=== PATIENT | female | born 2000 | race Caucasian/White ===

== ENCOUNTER 2020-03-05 11:50 | Outpatient (REF) | payer BC, SELFPAY ==
[2020-03-05 12:16] LABS: COVID-19 Test Negative (Negative)
== END 2020-03-05 11:51 | disposition home or self-care (01) ==
LOC: HO.LAB 11:50
PROVIDERS: PCP Hospitalist; Visit Provider Internal Medicine
DX: Z20.828 Contact with and (suspected) exposure to other viral communicable diseases (principal)
CPT/HCPCS: 87635

== ENCOUNTER 2020-12-29 20:27 | Emergency (ER) | payer BC, MEDICAID, SELFPAY ==
--- NOTE | ~2020-12-29 | XR_ITS ---
EXAMINATION: XR ANKLE, LEFT CLINICAL INFORMATION: Rule out fracture, pain COMPARISON: None TECHNIQUE: AP, lateral, and mortise views of the left ankle. FINDINGS: No fracture or dislocation. XR/XR ankle LT 2V IMPRESSION: No fracture or dislocation left ankle.
[2020-12-29 21:06] VITALS: BP 127/79; PULSE 88; RESP 16; TEMP 36.6; O2SAT 98; BMI 26.4
--- NOTE | 2020-12-29 21:36 | ED_ITS ---
HPI - Extremity Problem General Chief complaint: Extremity Problem Stated complaint: ankle injury Source: patient Mode of arrival: ambulatory Limitations: no limitations History of Present Illness HPI Narrative: 20-year-old female with no significant past medical history presents with left ankle pain after stepping into a pothole 2 days ago. Stated that while she was at work today the pain increased to the point where she had to sit down multiple times. She is able to ambulate but ambulates with a limp. Does not report any loss of sensation, or any other injuries. Complaint: extremity pain Onset (ago): day(s) (2) Pain Consistency: constant Location: left and lower extremity Severity scale (1-10): 5 Quality: aching Radiation: none Relieving factors: elevation and rest Exacerbating factors: weight bearing, walking and palpation Associated symptoms: denies other symptoms Related Data Home Medications Medication Instructions Recorded Confirmed No Known Home Meds 10/08/20 10/08/20 Allergies Allergy/AdvReac Type Severity Reaction Status Date / Time No Known Allergies Allergy Verified 12/29/20 21:06 [No Known Allergies*] Review of Systems Review of Systems: Constitutional: No Fever, No Chills ENT/Mouth: No Ear Pain, No Hoarseness, No sore throat Eyes: No Eye Pain, No Swelling, No Redness, No Foreign Body Cardiovascular: No Chest Pain, No SOB Respiratory: No Cough, No Dyspnea Gastrointestinal: No Nausea, No Vomiting, No Diarrhea, No abdominal Pain Genitourinary: No Dysuria, No Hematuria Musculoskeletal: positive left ankle pain, No Myalgias, No Joint Swelling Skin: No Skin lacerations, No rash Neuro: No Weakness, No Numbness, No Paresthesias, No Loss of Consciousness, No Dizziness, No Headache Psych: No Anxiety/Panic, No Depression Heme/Lymph: no easy bruising, no Lymphadenopathy Endocrine: No Polyuria, No Polydipsia Yes all other systems are reviewed and are negative [facility] Past Medical History Attestation statement: The following information was validated with the patient. Source: old records reviewed Social History Social History Advance Directives: No Advance Directives Information Provided: Yes Physical Exam Vital Signs: Vital Signs: Last Vital Signs Temp 97.8 F 12/29/20 21:06 Pulse 88 12/29/20 21:06 Resp 16 12/29/20 21:06 BP 127/79 12/29/20 21:06 Pulse Ox 98 12/29/20 21:06 Body Mass Index 26.4 Appearance: Alert. Oriented X3. No acute distress. Eyes: Pupils equal, round and reactive to light. ENT: Pharynx normal. Neck: Normal inspection. Neck supple. CVS: Normal heart rate and rhythm. Pulses normal. Respiratory: No respiratory distress. Breath sounds normal. Abdomen: Soft and nontender. Skin: Skin warm and dry. Normal skin color. Normal skin turgor. Extremities: No visible swelling or bruising. No tenderness to malleolar pr ocesses, full flexion extension internal and external rotation. Brisk capillary refill and equal pedal pulses. Neuro: No motor deficit. No sensory deficit. Course Course Course Narrative: 20-year-old female presents with left ankle pain after stepping into a pothole. Does not describe any other symptoms. X-rays are negative for acute findings. Physical exam unremarkable. Will place patient in Arnel wrap, and suggest ice, elevation, rest, Tylenol Motrin. I did apply an Arnel wrap for comfort. Patient verbalized understanding of and agrees to plan of care discharge home. MDM - Extremity (Nontraumatic) MDM Narrative Medical decision making narrative: Fracture, sprain, dislocation Medical Records Attestation: I reviewed the patient's medical records. Imaging Data Ankle x-ray: Attestation: I personally reviewed and interpreted this imaging study as follows: Radiologist's impression: EXAMINATION: XR ANKLE, LEFT CLINICAL INFORMATION: Rule out fracture, pain? COMPARISON: None? TECHNIQUE: AP, lateral, and mortise views of the left ankle. FINDINGS: No fracture or dislocation.? XR/XR ankle LT 2V IMPRESSION: No fracture or dislocation left ankle. Discharge Plan Discharge Clinical Impression: Ankle sprain Qualifiers: Encounter type: initial encounter Involved ligament of ankle: unspecified ligament Laterality: left Qualified Code(s): S93.402A - Sprain of unspecified ligament of left ankle, initial encounter Patient Disposition: Home, Self-Care Instructions: Ankle Sprain (ED), R.I.C.E. Treatment (ED) Additional Instructions: You were evaluated for left ankle pain after stepping into a pothole. X-rays are negative for acute findings, fracture or dislocation. Your injuries are consistent with a sprain. Please use Arnel wrap as needed for pain management. Rest, ice and elevate to help reduce swelling and pain. Use Tylenol or Motrin to help reduce pain. Thank you for choosing this emergency department for evaluation. Please follow-up with primary care physician as needed. Return to the emergency department for any new, concerning, or worsening symptoms. Stand Alone Forms: Work/School Release Interventions: ED Discharge Assessment Last Done: 12/29/20 22:31 Discharge Date/Time: 12/29/20 22:32
== END 2020-12-29 22:32 | disposition home or self-care (01) ==
PROVIDERS: Emergency Provider Internal Medicine; PCP Hospitalist
DX: S93.402A Sprain of unspecified ligament of left ankle, initial encounter (principal); W17.2XXA Fall into hole, initial encounter; Y93.01 Activity, walking, marching and hiking; Y92.414 Local residential or business street as the place of occurrence of the external cause; Y99.9 Unspecified external cause status
CPT/HCPCS: 73600; 99283

== ENCOUNTER 2021-04-16 08:00 | Outpatient (REF) | payer BC, MEDICAID, SELFPAY ==
[2021-04-16 13:10] LABS: BV Int Neg Control Negative (Negative); BV Int Pos Control Positive (Positive)
[2021-04-16 14:04] LABS: CT PCR NOT DETECTED (Not Detect.); NG PCR NOT DETECTED (Not Detect.)
== END 2021-04-16 08:01 | disposition home or self-care (01) ==
LOC: HO.LAB 08:00
PROVIDERS: PCP Hospitalist; Visit Provider Advanced Practice Midwife
DX: Z01.419 Encounter for gynecological examination (general) (routine) without abnormal findings (principal); Z20.2 Contact with and (suspected) exposure to infections with a predominantly sexual mode of transmission
CPT/HCPCS: 87480; 87491; 87510; 87591; 87660; 88142

== ENCOUNTER 2021-05-07 22:59 | Emergency (ER) | payer BC, MEDICAID, SELFPAY ==
[2021-05-07 23:19] VITALS: BP 129/76; PULSE 95; RESP 14; TEMP 36.7; O2SAT 97; BMI 26.6
[2021-05-08 00:50] LABS: COVID-19 Test Negative (Negative)
--- NOTE | 2021-05-08 01:52 | ED_ITS ---
HPI - URI/Sore Throat General Chief Complaint: Upper Respiratory Symptoms Stated Complaint: Flu like symptoms Time Seen by Provider: 05/08/21 01:52 Source: patient Mode of arrival: ambulatory Limitations: no limitations History of Present Illness HPI Narrative: cough, vomiting and rhinorrhea started 10 days ago. patient is vaccinated against covid MD elicited complaint: fever, cough, sore throat and rhinorrhea Onset (ago): day(s) Consistency: constant Severity: mild Relieving factors: nothing Associated symptoms: fever, headache, nasal congestion, sore throat and cough Related Data Previous Rx's Medication Instructions Recorded trazodone 50 mg tablet 25 mg PO BID PRN #60 tab 04/02/21 metronidazole 500 mg tablet 500 mg PO BID 7 Days #14 tab 04/22/21 ibuprofen 600 mg tablet 600 mg PO Q8H PRN #20 tab 05/08/21 ondansetron HCl 4 mg tablet 4 mg PO Q8H PRN #10 tab 05/08/21 (Zofran) rvvqpetlidkap-CZ-qrvyomupgie 2.5 20 ml PO Q4H PRN #118 ml 05/08/21 mg-5 mg-50 mg/5 mL oral liquid (Robitussin Cough and Cold CF) Allergies Allergy/AdvReac Type Severity Reaction Status Date / Time No Known Allergies Allergy Verified 04/16/21 08:26 [No Known Allergies*] Review of Systems Constitutional: Constitutional: Reports no additional constitutional co mplaints Eyes: Eyes: Reports no additional eye complaints ENT: Denies dizziness Cardiovascular: Cardiovascular: Reports no additional cardiovascular complaints Respiratory: Respiratory: Reports as per HPI Gastrointestinal: Gastrointestinal: Reports no additional gastrointestinal complaints Genitourinary: Genitourinary: Reports no additional female genitourinary complaints Musculoskeletal: Musculoskeletal: Reports no additional musculoskeletal complaints Integumentary/Breasts: Skin/Breast: Denies rash Neurologic: Reports system reviewed and no additional complaints, except as documented, Denies dizziness and Denies Sensory deficit (Neuro) Psychiatric: Psychiatric: Denies anxiety PMFSH Past Medical History Surgical History H/O right wrist surgery Social History Social History Housing: House Patient Tobacco Use Status: Never used Tobacco e-Cigarette/Vaping Use: Never Used Advance Directives: No Advance Directives Information Provided: Yes service: No Current occupational status: employed 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, 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 Gender identity: Female Physical Exam Vital Signs: Vital Signs: Last Vital Signs Temp 98.1 F 05/07/21 23:19 Pulse 95 05/07/21 23:19 Resp 14 05/07/21 23:19 BP 129/76 05/07/21 23:19 Pulse Ox 97 05/07/21 23:19 BMI result Body Mass Index 26.6 Const: Other: coughing General: healthy appearing Nutritional Appearance: average body habitus Orientation/consciousness: oriented to person and patient oriented x3 Limitations: no limitations HENMT: Head: Yes normal to inspection Ears: external ears normal General nose exam: Normal external nose present Mouth: Normal oral and palatal mucosa present and oropharynx normal Throat: Yes posterior oropharynx normal Eyes: General: appearance normal, both eyes and all related structures Neck: Other: supple Neck: Yes normal visual inspection Chest: Chest palpation & inspection: normal inspection of the chest Resp: Auscultation: clear to auscultation bilaterally Cardio: Jugular venous distension: no JVD Rate: regular rate Rhythm: regular rhythm Heart sounds: S1 normal heart sound present and S2 normal heart sound present GI: Inspection: Yes normal to inspection Palpation (GI): Soft to palpation, nontender and No hepatosplenomegaly present Auscultation: normal bowel sounds : General: Yes no CVA tenderness Back/Spine/Pelvis: Back: no CVA tenderness Skin: General skin exam: no rashes or lesions noted Neuro: General: oriented to person and patient oriented x3 Cranial nerves: Yes CN's II-XII intact bilaterally Motor exam (neuro): 5/5 motor strength p resent throughout Sensory Exam: No Sensory deficit (Neuro) Extrem: General: Yes normal to inspection Psych: Appearance: grossly normal Course Reevaluation(s) Reevaluation #1: patient with viral uri will dc home on medications for her symptoms Time: 02:00 MDM - URI/Sore Throat Lab Data Labs: Lab Results 05/08/21 Range/Units 00:32 COVID-19 (PAT) Negative (Negative) COVID-19 Clin Com See Note Discharge Plan Discharge Clinical Impression: Upper respiratory infection Qualifiers: URI type: unspecified URI Qualified Code(s): J06.9 - Acute upper respiratory infection, unspecified Patient Disposition: Home, Self-Care Instructions: Upper Respiratory Infection (ED), Viral Syndrome (ED) Prescriptions: New ondansetron HCl [Zofran] 4 mg tablet 4 mg PO Q8H PRN (Reason: nausea and vomiting) Qty: 10 RF: 0 ibuprofen 600 mg tablet 600 mg PO Q8H PRN (Reason: fever or pain) Qty: 20 RF: 0 Robitussin Cough and Cold CF 2.5-5-50 mg/5 mL liquid 20 ml PO Q4H PRN (Reason: cough) Qty: 118 RF: 0 No Action trazodone 50 mg tablet 25 mg PO BID PRN (Reason: for insomnia) Qty: 60 RF: 4 metronidazole 500 mg tablet 500 mg PO BID 7 Days Qty: 14 RF: 0 Referrals: Pam Salcido, [facility]PER [Primary Care Provider] - 1 week
[2021-05-08] MEDS: Ibuprofen 600 MG TABLET PO (02:09)
[2021-05-08] MEDS: Ondansetron ODT 4 MG TAB.RAPDIS TRANSLINGU (02:09)
[2021-05-08] MEDS: guaiFENesin 200 MG/10 ML 10 ML LIQUID PO (02:10)
[2021-05-08 02:12] VITALS: BP 116/70; PULSE 77; RESP 16
--- NOTE | 2021-05-08 02:15 | PC.NURSE ---
Reviewed discharge instructions and medications.
== END 2021-05-08 02:20 | disposition home or self-care (01) ==
PROVIDERS: Emergency Provider Emergency Medicine; PCP Hospitalist
DX: J06.9 Acute upper respiratory infection, unspecified (principal); Z20.822 Contact with and (suspected) exposure to COVID-19
CPT/HCPCS: 36415; 87635; 99283; 99284

== ENCOUNTER 2021-12-04 08:48 | Outpatient (REF) | payer MEDICAID, SELFPAY ==
[2021-12-04 11:23] LABS: Hematocrit 41.7 % (37.0-47.0); Hemoglobin 13.8 g/dl (12.0-16.0); Mean Corpuscular HGB Conc 33.1 g/dl (31.0-35.0); Mean Corpuscular Hemoglobin 28.5 pg (27.0-33.0); Mean Corpuscular Volume 86.2 fL (80.0-98.0); Mean Platelet Volume 9.6 fL (9.4-12.3); Platelet Count 357 X10*3/uL (160-400); Red Blood Count 4.84 X10*6/uL (4.20-5.50); Red Cell Distribution Width 12.3 % (11.0-16.0); White Blood Count 7.1 X10*3/uL (4.8-10.8)
[2021-12-04 11:47] LABS: Alanine Aminotransferase 71 U/L (0-31); Albumin Level 4.4 g/dL (3.5-5.0); Alkaline Phosphatase 86 U/L (39-117); Anion Gap 11 (12-20); Aspartate Amino Transferase 40 U/L (5-31); Bilirubin Total 0.7 mg/dL (0.0-1.0); Blood Urea Nitrogen 13 mg/dL (9-16); Calcium 9.4 mg/dL (8.4-10.2); Carbon Dioxide 26 mmol/L (22-29); Chloride 103 mmol/L (96-108); Cholesterol 191 mg/dL; Estimated Glomerular Filt Rate > 60; Glucose Fasting 94 mg/dL (60-99); HDL Cholesterol 36 mg/dL; LDL Cholesterol Calculated 128 mg/dl; Potassium 4.2 mmol/L (3.3-5.1); Sodium 136 mmol/L (135-145); Total Protein 7.9 g/dL (6.5-8.0); Triglycerides 135 mg/dL
[2021-12-04 12:10] LABS: TSH reflex Free T4 0.71 uIU/mL (0.32-4.0)
== END 2021-12-04 08:49 | disposition home or self-care (01) ==
LOC: HO.WFDLDS 08:48
PROVIDERS: Visit Provider Hospitalist
DX: Z00.00 Encounter for general adult medical examination without abnormal findings (principal)
CPT/HCPCS: 36415; 80053; 80061; 84443; 85027

== ENCOUNTER 2022-04-22 10:41 | Outpatient (REF) | payer BC, MEDICAID, SELFPAY ==
[2022-04-22 14:24] LABS: CT PCR NOT DETECTED (Not Detect.); NG PCR NOT DETECTED (Not Detect.)
[2022-04-23 13:58] LABS: BV Int Neg Control Negative (Negative); BV Int Pos Control Positive (Positive)
== END 2022-04-22 10:42 | disposition home or self-care (01) ==
LOC: HO.LNP 10:41
PROVIDERS: Visit Provider Advanced Practice Midwife
DX: Z11.3 Encounter for screening for infections with a predominantly sexual mode of transmission (principal)
CPT/HCPCS: 87480; 87491; 87510; 87591; 87660

== ENCOUNTER 2022-05-06 18:05 | Emergency (ER) | payer BC, MEDICAID, SELFPAY ==
[2022-05-06 19:07] VITALS: BP 144/80; PULSE 119; RESP 16; TEMP 37.5; O2SAT 97; BMI 28.2
--- NOTE | 2022-05-06 19:07 | ED.URI ---
HPI - URI/Sore Throat General Chief Complaint: General Medical <Coco Spicer NP - Last Filed: 05/06/22 19:08> Stated Complaint: Cough, Chest pressure, congestion <Coco Spicer NP - Last Filed: 05/06/22 19:08> Time Seen by Provider: 05/06/22 20:21 <Coco Spicer NP - Last Filed: 05/06/22 19:08> Source: patient <Shana Diaz MD - Last Filed: 05/06/22 20:58> Mode of arrival: ambulatory <Shana Diaz MD - Last Filed: 05/06/22 20:58> Limitations: no limitations <Shana Diaz MD - Last Filed: 05/06/22 20:58> History of Present Illness HPI Narrative: 22-year-old female came in for evaluation of generalized body ache, generalized joints ache, fever, chills, coughing and runny nose with sneezing. 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 Symptoms started since yesterday. <Shana Diaz MD - Last Filed: 05/06/22 20:58> Related Data Home Medications: Previous Rx's Medication Instructions Recorded guaifenesin 100 mg/5 mL oral 200 mg (10 mL) PO Q4H PRN cough 05/06/22 liquid (Mucinex Fast-Max Chest #1,500 mL Congestion) oseltamivir 75 mg capsule (Tamiflu) 75 mg PO BID 5 days #10 caps 05/06/22 oseltamivir 75 mg capsule (Tamiflu) 75 mg PO BID 5 days #10 caps 05/06/22 <Coco Spicer NP - Last Filed: 05/06/22 19:08> Allergies/Adverse Reactions: Allergies Allergy/AdvReac Type Severity Reaction Status Date / Time No Known Allergies Allergy Verified 04/22/22 09:04 [No Known Allergies*] <Coco Spicer NP - Last Filed: 05/06/22 19:08> Review of Systems Review of Systems: All other systems are reviewed and are negative Constitutional: Reports as per HPI and Reports no additional constitutional complaints Eyes: Reports as per HPI and Reports no additional eye complaints Reports system reviewed and no additional complaints, except as documented Cardiovascular: Reports as per HPI and Reports no additional cardiovascular complaints Respiratory: Reports as per HPI and Reports no additional respiratory complaints Gastrointestinal: Reports as per HPI and Reports no additional gastrointestinal complaints Genitourinary: Reports no additional female genitourinary complaints Musculoskeletal: Reports no additional musculoskeletal complaints Skin/Breast: Reports system reviewed and no additional complaints, except as docu Psychiatric: Reports no additional psychiatric complaints Endocrine: Reports no additional endocrine complaints Hematologic/Lymphatic: Reports no additional hematologic/lymphatic complaints Allergic/Immunologic: Reports no additional allergic/immunologic complaints Reports system reviewed and no additional complaints, except as documented and Reports Abnormal speech present <Shana Diaz MD - Last Filed: 05/06/22 20:58> COUNT INCLUDES THE [facility] Past Medical History Surgical History: Surgical History H/O right wrist surgery <Coco Spicer NP - Last Filed: 05/06/22 19:08> Social History Social History: Social History Housing: House Patient Tobacco Use Status: Never used Tobacco e-Cigarette/Vaping Use: Never Used Advance Directives: No Advance Directives Information Provided: No service: No Current occupational status: employed 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, 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 Gender identity: Female Cognitive needs: No Hearing needs: No Vision needs: Yes (contacts) <Coco Spicer NP - Last Filed: 05/06/22 19:08> Physical Exam Vital Signs: Vital Signs: Last Vital Signs Temp 99.2 F 05/06/22 20:17 Pulse 109 H 05/06/22 20:17 Resp 18 05/06/22 20:17 BP 133/66 05/06/22 20:17 Pulse Ox 98 05/06/22 20:17 O2 Del Method 05/06/22 20:17 BMI result Body Mass Index 28.2 <Coco Spicer NP - Last Filed: 05/06/22 19:08> Vital Signs: Last Vital Signs Temp 99.2 F 05/06/22 20:17 Pulse 109 H 05/06/22 20:17 Resp 18 05/06/22 20:17 BP 133/66 05/06/22 20:17 Pulse Ox 98 05/06/22 20:17 O2 Del Method 05/06/22 20:17 BMI result Body Mass Index 28.2 Vital signs have been reviewed as appeared to be correct. Blood pressure normal. Heart rate normal. Respiration rate normal. Temperature normal. Oxygen saturation normal. <Shana Diaz MD - Last Filed: 05/06/22 20:58> Appearance: Alert. Oriented X3. No acute distress. Head: Normal external exam. Normocephalic. Atraumatic. No Cheung signs noted. No raccoon eyes noted Eyes: PERRLA. EOMI. Conjunctiva and sclera normal. Eyelids normal. ENT: TM's Normal. Pharynx normal. Uvula midline. Moist mucous membranes. No trismus noted. No drooling noted. No muffled voice noted. Neck: Normal inspection. Neck supple. FROM. No adenopathy. Thyroid Normal. No meningeal signs. No neck mass noted. CVS: Normal heart rate and rhythm. Heart sound normal. No murmurs noted. Pulses normal throughout. Respiratory: No respiratory distress. Painless inspiration. Breath sounds normal. No wheezes/rales/rhonchi noted. Chest nontender. No accessory muscle usage noted or decreased air movement noted. Abdomen: Soft and nontender. Bowel sounds normal in all 4 quadrants. No distention noted. No organomegaly noted. No visible injury noted. Back: No CVA tenderness. Full range of motion noted. Skin: Skin warm and dry. Normal skin color. Normal skin turgor. No rashes/lesions/lacerations noted. Extremities: No lower extremity edema. Extremities exhibit normal range of motion. Extremities nontender. Neuro: Oriented X 3. Cranial nerve exam: II-XII are grossly intact No motor deficit. No sensory deficit. Reflexes normal. <Shana Diaz MD - Last Filed: 05/06/22 20:58> Course Course Course Narrative: This is a rapid medical exam. Deferred additional HPI, ROS and PE to primary provider. 22-year-old female here with cough and fever as well as chest discomfort since yesterday. Vitals stable. Will send testing for flu, COVID, RSV <Coco Spicer NP - Last Filed: 05/06/22 19:08> Reevaluation(s) Reevaluation #1: Positive for influenza A symptoms started 24 hours ago start the patient on Tamiflu and coughing medication, rest at home, self quarantine until symptoms improve, where facemask and frequent handwashing. <Shana Diaz MD - Last Filed: 05/06/22 20:58> Time: 20:55 <Shana Diaz MD - Last Filed: 05/06/22 20:58> Medical Decision Making Differential Diagnosis Differential Diagnoses: The differential diagnosis associated with the presentation includes (RSV/COVID-19 infection/influenza.) <Shana Diaz MD - Last Filed: 05/06/22 20:58> Lab Data MDM Lab Attestation statement: I reviewed the patient's lab results. <Shana Diaz MD - Last Filed: 05/06/22 20:58> Labs: Lab Results 05/06/22 Range/Units 19:48 Influenza Type A (PCR) POSITIVE A (Negative) Influenza Type B (PCR) NEGATIVE (Negative) RSV RNA Qual (PCR) NEGATIVE (Negative) SARS-CoV-2 RNA (RT-PCR) NEGATIVE (Negative) <Coco Spicer NP - Last Filed: 05/06/22 19:08> Lab Results 05/06/22 Range/Units 19:48 Influenza Type A (PCR) POSITIVE A (Negative) Influenza Type B (PCR) NEGATIVE (Negative) RSV RNA Qual (PCR) NEGATIVE (Negative) SARS-CoV-2 RNA (RT-PCR) NEGATIVE (Negative) <Shana Diaz MD - Last Filed: 05/06/22 20:58> Discharge Plan Discharge Clinical Impression: Influenza A <Coco Spicer NP - Last Filed: 05/06/22 19:08> Patient Disposition: Home, Self-Care <Coco Spicer NP - Last Filed: 05/06/22 19:08> Instructions: Influenza (ED) <Coco Spicer NP - Last Filed: 05/06/22 19:08> Prescriptions: New oseltamivir [Tamiflu] 75 mg capsule 75 mg PO BID 5 Days Qty: 10 0RF guaifenesin [Mucinex Fast-Max Chest-Congest] 100 mg/5 mL liquid 200 mg PO Q4H PRN (Reason: cough) Qty: 1500 0RF oseltamivir [Tamiflu] 75 mg capsule 75 mg PO BID 5 Days Qty: 10 0RF <Coco Spicer NP - Last Filed: 05/06/22 19:08> Referrals: Pam Salcido, SERVICE DEPARTMENT MANAGER [Primary Care Provider] - <Coco Spicer NP - Last Filed: 05/06/22 19:08> Stand Alone Forms: Work/School Release <Coco Spicer NP - Last Filed: 05/06/22 19:08>
[2022-05-06 20:17] VITALS: BP 133/66; PULSE 109; RESP 18; TEMP 37.3; O2SAT 98
[2022-05-06 20:30] LABS: Influenza A PCR POSITIVE (Negative); Influenza B PCR NEGATIVE (Negative); Resp Syncy Virus RNA Qual PCR NEGATIVE (Negative); SARS COV2 PCR INHOUSE NEGATIVE (Negative)
== END 2022-05-06 21:10 | disposition home or self-care (01) ==
PROVIDERS: Nurse Practitioner Family; Emergency Provider Emergency Medicine; PCP Hospitalist
DX: J11.1 Influenza due to unidentified influenza virus with other respiratory manifestations (principal); Z20.822 Contact with and (suspected) exposure to COVID-19
CPT/HCPCS: 0241U; 99282; 99283

== ENCOUNTER 2022-05-10 22:20 | Emergency (ER) | payer BC, MEDICAID, SELFPAY ==
[2022-05-10 22:23] VITALS: BP 142/97; PULSE 80; RESP 18; TEMP 36.2; O2SAT 99; BMI 27.4
[2022-05-10 23:40] LABS: Influenza A PCR POSITIVE (Negative); Influenza B PCR NEGATIVE (Negative); Resp Syncy Virus RNA Qual PCR NEGATIVE (Negative); SARS COV2 PCR INHOUSE NEGATIVE (Negative)
--- NOTE | 2022-05-10 23:51 | ED.URI ---
HPI - URI/Sore Throat General Chief Complaint: Upper Respiratory Symptoms Stated Complaint: flu like symptoms Time Seen by Provider: 05/10/22 23:30 Source: patient Mode of arrival: ambulatory History of Present Illness HPI Narrative: 22-year-old female who presents after having been diagnosed with influenza a 4 days ago and started on Tamiflu states that she continues to have frequent cough that is worse at night as well as chest wall pain and feeling short of breath. She denies any history of diabetes, asthma, cigarette smoking or we would smoking. Related Data Previous Rx's Medication Instructions Recorded guaifenesin 100 mg/5 mL oral 200 mg (10 mL) PO Q4H PRN cough 05/06/22 liquid (Mucinex Fast-Max Chest #1,500 mL Congestion) oseltamivir 75 mg capsule (Tamiflu) 75 mg PO BID 5 days #10 caps 05/06/22 oseltamivir 75 mg capsule (Tamiflu) 75 mg PO BID 5 days #10 caps 05/06/22 Allergies Allergy/AdvReac Type Severity Reaction Status Date / Time No Known Allergies Allergy Verified 04/22/22 09:04 [No Known Allergies*] Review of Systems Review of Systems: Pertinent positives and negatives as stated in HPI 10 point review of systems otherwise negative. 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 GENERAL: Well developed, well nourished, in no acute distress. HEAD: Normocephalic/atraumatic EYES: PERRLA, EOMI EARS: Ext canals without abnormality, TMs non-bulging and non-erythematous NOSE: Nares patent bilateral OROPHARYNX: no oral lesions noted, posterior pharynx clear and non-erythematous without noted tonsillar enlargement/erythema/exudates NECK: Supple, no adenopathy LUNGS: Normal breath sounds. No adventitious sounds or accessory muscle use. SpO2<99> CARDIOVASCULAR: Regular rate and rhythm without noted murmurs ABDOMEN: Soft, non-tender, non-distended with bowel sounds. MUSCULOSKELETAL: No tenderness, deformities, or effusions noted on gross inspection. EXTREMITIES: No cyanosis, clubbing or edema. SKIN: Inspection of the skin reveals no rashes NEUROLOGIC: Alert and oriented x 4. Strength and sensation to light touch were grossly intact x 4. Course Course Course Narrative: 22-year-old female who has previously been identified as having influenza a and has almost completed her course of Tamiflu presents with complaints of persistent cough and no additional. I discussed with the patient at length and informed her that this cough will likely persist for 4 weeks, and gave counseling regarding elevation while sleeping at night as well as cool mist humidifier in the use of [id number] NyQuil. Medical Decision Making Lab Data Labs: Lab Results 05/10/22 Range/Units 22:58 Influenza Type A (PCR) POSITIVE A (Negative) Influenza Type B (PCR) NEGATIVE (Negative) RSV RNA Qual (PCR) NEGATIVE (Negative) SARS-CoV-2 RNA (RT-PCR) NEGATIVE (Negative) Discharge Plan Discharge Clinical Impression: Cough, Chest wall discomfort, Influenza A Patient Disposition: Home, Self-Care Instructions: Acute Cough (ED), Upper Respiratory Infection (ED), Influenza (ED), Chest Wall Pain (ED) Additional Instructions: 1. Recommend that you take [id number] Tylenol and ibuprofen together every 6 hours for symptom relief. I also recommend NyQuil. 2. Sleep in in elevated position with a cool mist humidifier at the bedside. Return to the ER for worsening symptoms. Prescriptions: No Action oseltamivir [Tamiflu] 75 mg capsule 75 mg PO BID 5 Days Qty: 10 0RF guaifenesin [Mucinex Fast-Max Chest-Congest] 100 mg/5 mL liquid 200 mg PO Q4H PRN (Reason: cough) Qty: 1500 0RF oseltamivir [Tamiflu] 75 mg capsule 75 mg PO BID 5 Days Qty: 10 0RF
[2022-05-11 00:01] VITALS: BP 119/74; PULSE 70; RESP 14; TEMP 36.8; O2SAT 98
[2022-05-11] MEDS: Ibuprofen 400 MG TABLET PO (00:01)
[2022-05-11] MEDS: Benzonatate 100 MG CAPSULE 200 MG PO (00:01)
[2022-05-11] MEDS: Acetaminophen 325 MG TABLET 975 MG PO (00:01)
== END 2022-05-11 00:05 | disposition home or self-care (01) ==
PROVIDERS: Emergency Provider Student in an Organized Health Care Education/Training Program; PCP Hospitalist
DX: J10.1 Influenza due to other identified influenza virus with other respiratory manifestations (principal); R05.9 Cough, unspecified; R07.89 Other chest pain; Z20.822 Contact with and (suspected) exposure to COVID-19
CPT/HCPCS: 0241U; 99283

== ENCOUNTER 2022-07-01 21:08 | Emergency (ER) | payer BC, MEDICAID, SELFPAY ==
[2022-07-01 21:14] VITALS: BP 131/71; PULSE 106; RESP 20; TEMP 36.8; O2SAT 99; BMI 27.4
[2022-07-01 21:30] LABS: Basophils Percent Auto 0.1 % (0-2); Eosinophils Percent Auto 0.1 % (0-4); Hematocrit 39.4 % (37.0-47.0); Hemoglobin 13.7 g/dl (12.0-16.0); Imm Gran Abs Auto 0.05 X10*3/uL (0.00-0.03); Imm Gran Pct Auto 0.3 % (0.0-0.4); Lymphocytes Absolute Auto 0.6 X10*3/uL (1.2-4.9); Lymphocytes Percent Auto 3.9 % (20-40); MANUAL DIFF FLAG SCAN; Mean Corpuscular HGB Conc 34.8 g/dl (31.0-35.0); Mean Corpuscular Hemoglobin 29.1 pg (27.0-33.0); Mean Corpuscular Volume 83.7 fL (80.0-98.0); Mean Platelet Volume 9.3 fL (9.4-12.3); Monocytes Absolute Auto 0.3 X10*3/uL (0.1-1.2); Neutrophils Percent Auto 93.6 % (45-73); Platelet Count 307 X10*3/uL (160-400); Red Blood Count 4.71 X10*6/uL (4.20-5.50); Red Cell Distribution Width 12.2 % (11.0-16.0); SCAN SMEAR FLAG 1
[2022-07-01 21:49] LABS: SLIDE REVIEW VERIFIED
[2022-07-01 21:50] LABS: Anion Gap 17 (12-20); Blood Urea Nitrogen 17 mg/dL (9-16); Calcium 9.5 mg/dL (8.4-10.2); Chloride 106 mmol/L (96-108); Creatinine Clr Calc Pharmacy 124.5; Estimated Glomerular Filt Rate > 60; Glucose Random 118 mg/dL (60-115); Potassium 4.3 mmol/L (3.3-5.1); Sodium 139 mmol/L (135-145)
[2022-07-01 21:59] LABS: Carbon Dioxide 20 mmol/L (22-29)
--- NOTE | 2022-07-01 23:30 | ED.ABDPAIN ---
HPI - Abdominal Pain General Chief Complaint: Abdominal Pain Stated Complaint: vomiting, diarrhea Time Seen by Provider: 07/01/22 23:28 Source: patient Mode of arrival: ambulatory Limitations: no limitations History of Present Illness HPI narrative: Patient had [employer] food last night today since morning been vomiting and diarrhea vomited about 6 times diarrhea about 8 times no other family member sick no fever no chills diffuse abdominal cramping . Related Data Previous Rx's Medication Instructions Recorded guaifenesin 100 mg/5 mL oral 200 mg (10 mL) PO Q4H PRN cough 05/06/22 liquid (Mucinex Fast-Max Chest #1,500 mL Congestion) oseltamivir 75 mg capsule (Tamiflu) 75 mg PO BID 5 days #10 caps 05/06/22 oseltamivir 75 mg capsule (Tamiflu) 75 mg PO BID 5 days #10 caps 05/06/22 loperamide 2 mg capsule (Imodium 2 mg PO Q6H PRN loose stool #10 07/02/22 A-D) caps ondansetron 4 mg disintegrating 4 mg PO Q6-8H PRN nausea and 07/02/22 tablet vomiting #10 tabs Allergies Allergy/AdvReac Type Severity Reaction Status Date / Time No Known Allergies Allergy Verified 07/01/22 21:17 [No Known Allergies*] Review of Systems Review of Systems Yes all other systems are reviewed and are negative [facility] Past Medical History Surgical History H/O right wrist surgery Social History Social History Housing: House Patient Tobacco Use Status: Never used Tobacco e-Cigarette/Vaping Use: Never Used Advance Directives: No Advance Directives Information Provided: No service: No Current occupational status: employed 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 Oriented X3. No acute distress. Eyes: No pallor or icterus ENT: Pharynx normal. Oral Mucosa moist Neck: Normal inspection. Neck supple. CVS: Normal heart rate and rhythm. Pulses normal. Respiratory: No respiratory distress. Equal air entry bilateral, no wheezing/rales/rhonchi Abdomen: Soft and nontender. Bowel sounds are present, no mass palpable, no CVA tenderness Skin: Skin warm and dry. Normal skin color. Normal skin turgor. Neuro: Oriented X 3. Medical Decision Making Medical Decision Making [facility] Narrative: Patient with benign abdomen likely food poisoning/viral etiology for gastroenteritis after Zofran sublingual patient able to drink p.o. fluids feeling much better discharge patient home Lab Data [facility] Lab Attestation statement: I reviewed the patient's lab results. 07/01/22 21:25 07/01/22 21:25 Labs: Lab Results 07/01/22 07/01/22 Range/Units 21:25 21:25 WBC 15.0 H (4.8-10.8) X10*3/uL RBC 4.71 (4.20-5.50) X10*6/uL Hgb 13.7 (12.0-16.0) g/dl Hct 39.4 (37.0-47.0) % MCV 83.7 (80.0-98.0) fL MCH 29.1 (27.0-33.0) pg MCHC 34.8 (31.0-35.0) g/dl RDW 12.2 (11.0-16.0) % Plt Count 307 (160-400) X10*3/uL MPV 9.3 L (9.4-12.3) fL Immature Gran % (Auto) 0.3 (0.0-0.4) % Neut % (Auto) 93.6 H (45-73) % Lymph % (Auto) 3.9 L (20-40) % [place] % (Auto) 2.0 (2-11) % Eos % (Auto) 0.1 (0-4) % Baso % (Auto) 0.1 (0-2) % Lymph # (Auto) 0.6 L (1.2-4.9) X10*3/uL [place] # (Auto) 0.3 (0.1-1.2) X10*3/uL Eos # (Auto) 0.0 (0.0-0.4) X10*3/uL Baso # (Auto) 0.0 (0.0-0.2) X10*3/uL Abs Immat Gran (auto) 0.05 H (0.00-0.03) X10*3/uL Absolute Neuts (auto) 14.0 H (2.0-8.3) x10*3/uL Absolute Nucleated RBC 0.000 (0.0-0.012) X10*3/uL Nucleated RBC % (auto) 0.0 (0.0-0.2) /100WBC Smear Tech's Comments VERIFIED Sodium 139 (135-145) mmol/L Potassium 4.3 (3.3-5.1) mmol/L Chloride 106 (96-108) mmol/L Carbon Dioxide 20 L (22-29) mmol/L Anion Gap 17 (12-20) BUN 17 H (9-16) mg/dL Creatinine 0.73 (0.5-1.4) mg/dL Estim Creat Clear Calc 124.5 Estimated GFR > 60 Random Glucose 118 H (60-115) mg/dL Calcium 9.5 (8.4-10.2) mg/dL Medications Administered Discontinued Medications Generic Name Dose Route Start Last Admin Trade Name Freq PRN Reason Stop Dose Admin Dicyclomine HCl 20 mg 07/01/22 23:50 07/01/22 23:57 Dicyclomine Hcl 10 Mg Capsule PO 07/01/22 23:51 20 mg ONCE ONE Administration Loperamide HCl 2 mg 07/01/22 23:50 07/01/22 23:57 Loperamide Hcl 2 Mg Capsule PO 07/01/22 23:51 2 mg ONCE ONE Administration Ondansetron HCl 4 mg 07/01/22 23:50 07/01/22 23:58 Ondansetron Odt 4 Mg Tab.Rapdis TRANSLINGU 07/01/22 23:51 4 mg ONCE ONE Administration Discharge Plan Discharge Clinical Impression: Gastroenteritis Patient Disposition: Home, Self-Care Instructions: Gastroenteritis (ED) Additional Instructions: Drink plenty of fluids Take nausea medication as prescribed Imodium for severe diarrhea Report to the ER if not better/worsening abdominal pain Follow-up with PCP Prescriptions: New ondansetron 4 mg tablet,disintegrating 4 mg PO Q6-8H PRN (Reason: nausea and vomiting) Qty: 10 0RF loperamide [Imodium A-D] 2 mg capsule 2 mg PO Q6H PRN (Reason: loose stool) Qty: 10 0RF No Action oseltamivir [Tamiflu] 75 mg capsule 75 mg PO BID 5 Days Qty: 10 0RF guaifenesin [Mucinex Fast-Max Chest-Congest] 100 mg/5 mL liquid 200 mg PO Q4H PRN (Reason: cough) Qty: 1500 0RF oseltamivir [Tamiflu] 75 mg capsule 75 mg PO BID 5 Days Qty: 10 0RF Interventions: ED Discharge Assessment Last Done: 07/02/22 00:49 Discharge Date/Time: 07/02/22 00:46
[2022-07-01] MEDS: Dicyclomine HCl 10 MG CAPSULE 20 MG PO (23:57)
[2022-07-01] MEDS: Loperamide HCl 2 MG CAPSULE PO (23:57)
[2022-07-01] MEDS: Ondansetron ODT 4 MG TAB.RAPDIS TRANSLINGU (23:58)
[2022-07-02] VITALS: BP 111/71; PULSE 86; RESP 14; TEMP 36.6; O2SAT 98
== END 2022-07-02 00:46 | disposition home or self-care (01) ==
PROVIDERS: Emergency Provider Internal Medicine; PCP Hospitalist
DX: K52.9 Noninfective gastroenteritis and colitis, unspecified (principal)
CPT/HCPCS: 36415; 80048; 85025; 99283

== ENCOUNTER 2022-08-01 09:42 | Outpatient (REF) | payer BC, MEDICAID, SELFPAY ==
[2022-08-01 10:22] LABS: Hematocrit 39.7 % (37.0-47.0); Hemoglobin 13.2 g/dl (12.0-16.0); Mean Corpuscular HGB Conc 33.2 g/dl (31.0-35.0); Mean Corpuscular Hemoglobin 28.3 pg (27.0-33.0); Mean Corpuscular Volume 85.2 fL (80.0-98.0); Platelet Count 400 X10*3/uL (160-400); Red Blood Count 4.66 X10*6/uL (4.20-5.50); Red Cell Distribution Width 11.9 % (11.0-16.0); White Blood Count 7.8 X10*3/uL (4.8-10.8)
[2022-08-01 10:59] LABS: Alanine Aminotransferase 53 U/L (0-31); Albumin Level 3.9 g/dL (3.5-5.0); Alkaline Phosphatase 88 U/L (39-117); Aspartate Amino Transferase 32 U/L (5-31); Bilirubin Direct < 0.2 mg/dL (0.0-0.5); Bilirubin Total 0.5 mg/dL (0.0-1.0); Total Protein 7.2 g/dL (6.5-8.0)
== END 2022-08-01 09:43 | disposition home or self-care (01) ==
LOC: HO.LAB 09:42
PROVIDERS: PCP Hospitalist; Visit Provider Hospitalist
DX: A08.4 Viral intestinal infection, unspecified (principal); D72.829 Elevated white blood cell count, unspecified; R74.8 Abnormal levels of other serum enzymes
CPT/HCPCS: 36415; 80076; 85027

== ENCOUNTER 2023-05-03 20:03 | Emergency (ER) | payer MEDICAID, SELFPAY ==
[2023-05-03 21:19] VITALS: BP 140/100; PULSE 86; RESP 18; TEMP 36.6; O2SAT 97; BMI 28.6
--- NOTE | 2023-05-03 23:30 | ED.SKABFB ---
HPI - Skin/Abscess/Foreign Bdy General Chief complaint: Skin/Abscess/Foreign Body Stated complaint: Rash on thigh Time Seen by Provider: 05/03/23 23:13 Source: patient Mode of arrival: ambulatory Limitations: no limitations History of Present Illness HPI narrative: 23 yo female tattoo 2 weeks ago used a cream for tattoos 2 days ago started with red pruritic rash no hx of allergies. no fevers or systemic symptoms no improvement with benadryl, scratchin area and cannot tolerate the itching MD complaint: rash Onset (ago): day(s) (2) Tetanus up to date: yes Location: LLE Severity: moderate Quality: pruritic Relieving factors: medication Exacerbating factors: none Context: other (tattoo 2 weeks ago used cream) Associated symptoms: denies other symptoms Treatments prior to arrival: OTC topical medication and Benadryl Related Data Previous Rx's Medication Instructions Recorded cephalexin 500 mg capsule 500 mg PO QID 7 days #28 caps 05/03/23 cetirizine 10 mg tablet 10 mg PO DAILY PRN allergy 05/03/23 symptoms #30 tabs famotidine 20 mg tablet (Pepcid) 20 mg PO DAILY abdominal 05/03/23 discomfort #14 tabs hydroxyzine HCl 50 mg tablet 50 mg PO TID PRN itching #30 tabs 05/03/23 prednisone 20 mg tablet 40 mg (2 x 20 mg) PO DAILY 4 days 05/03/23 #8 tabs Allergies Allergy/AdvReac Type Severity Reaction Status Date / Time No Known Allergies Allergy Verified 05/03/23 21:19 [No Known Allergies*] Review of Systems Review of Systems: Constitutional : No Fever, No Chills ENT/Mouth : No sore throat, No Rhinorrhea Eyes: No Eye Pain, No Swelling, No Redness Cardiovascular : No Chest Pain, No SOB Respiratory : No Cough, No Sputum Gastrointestinal : No Nausea, No Vomiting, No Diarrhea, No abdominal Pain Genitourinary : No Dysuria, No Hematuria Musculoskeletal : No joint pain, No Myalgias, No Joint Swelling Skin : No Skin Lesions, positive skin rash Neuro : No Weakness, No Numbness, No Headache Psych : No Anxiety, No Depression Heme/Lymph: No Bruising, No Bleeding,No Lymphadenopathy Endocrine : No Polyuria, No Polydipsia All other systems reviewed and are negative PMFSH Past Medical History Attestation statement: The following information was validated with the patient. 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 Oriented X3. No acute distress. Eyes: Pupils equal, round and reactive to light. ENT: Pharynx normal. Neck: Normal inspection. Neck supple. CVS: Pulses normal. Respiratory: No respiratory distress. Abdomen: Soft and non-tender. Skin: Skin warm and dry. Normal skin color. Normal skin turgor. raised excoriated non fluctuant hot rash to left upper thigh Extremities: No lower extremity edema. Neuro: Oriented X 3. No motor deficit. No sensory deficit. Medical Decision Making Medical Decision Making MDM Narrative: 23 yo female here with pruritic red hot rash on L thigh after new tattoo and using tattoo cream no systemic symptoms - not toxic at this time could be allergy with early cellulitis will start on supportive med and keflex and send home with precautions Differential Diagnosis Differential Diagnoses: The differential diagnosis associated with the presentation includes allergy, cellulitis Independent Historian Clinical information obtained from an independent historian. History obtained from or confirmed by: Spouse External Record Review External record reviewed: Office record Prescription Management I considered prescription management with: Antibiotic and Other Discharge Plan Discharge Clinical Impression: Allergic reaction Qualifiers: Encounter type: initial encounter Qualified Code(s): T78.40XA - Allergy, unspecified, initial encounter Patient Disposition: Home, Self-Care Instructions: General Allergic Reaction (ED) Additional Instructions: suspect allergic reaction to topical tattoo cream you used will start on different medication do not use that again. also possible start of infection given the scratching. return for worsening symptoms - fevers, redness, swelling or any other concerns. Prescriptions: New prednisone 20 mg tablet 40 mg PO DAILY 4 Days Qty: 8 0RF famotidine [Pepcid] 20 mg tablet 20 mg PO DAILY Qty: 14 0RF cephalexin 500 mg capsule 500 mg PO QID 7 Days Qty: 28 0RF cetirizine 10 mg tablet 10 mg PO DAILY PRN (Reason: allergy symptoms) Qty: 30 0RF hydroxyzine HCl 50 mg tablet 50 mg PO TID PRN (Reason: itching) Qty: 30 0RF Stand Alone Forms: Work/School Release
[2023-05-04] MEDS: predniSONE 20 MG TABLET 40 MG PO (00:11)
[2023-05-04] MEDS: hydrOXYzine HCL 50 MG TABLET PO (00:11)
[2023-05-04] MEDS: Famotidine 20 MG TABLET PO (00:11)
== END 2023-05-04 00:16 | disposition home or self-care (01) ==
PROVIDERS: Emergency Provider Emergency Medicine
DX: R21 Rash and other nonspecific skin eruption (principal); T78.40XA Allergy, unspecified, initial encounter; X58.XXXA Exposure to other specified factors, initial encounter
CPT/HCPCS: 99282; 99283

== ENCOUNTER 2023-05-24 20:29 | Emergency (ER) | payer BC, MEDICAID, SELFPAY ==
[2023-05-24 20:48] VITALS: BP 137/92; PULSE 90; RESP 19; TEMP 36.4; O2SAT 98; BMI 29.4
--- NOTE | 2023-05-24 20:51 | ED.GENADULT ---
HPI - General Adult General Chief complaint: Allergic Reaction Stated complaint: allergic reaction to a tattoo Time Seen by Provider: 05/24/23 20:54 Source: patient Mode of arrival: ambulatory Limitations: no limitations History of Present Illness HPI narrative: 23-year-old female previously healthy here with complaints of itching rash to the left thigh which developed after she was using a topical cream on her new tattoo. Patient reports she has had similar allergic reaction to this cream in the past. Related Data Previous Rx's Medication Instructions Recorded cephalexin 500 mg capsule 500 mg PO QID 7 days #28 caps 05/03/23 cetirizine 10 mg tablet 10 mg PO DAILY PRN allergy 05/03/23 symptoms #30 tabs famotidine 20 mg tablet (Pepcid) 20 mg PO DAILY abdominal 05/03/23 discomfort #14 tabs hydroxyzine HCl 50 mg tablet 50 mg PO TID PRN itching #30 tabs 05/03/23 prednisone 20 mg tablet 40 mg (2 x 20 mg) PO DAILY 4 days 05/03/23 #8 tabs cephalexin 500 mg capsule 500 mg PO QID #28 caps 05/24/23 cetirizine 10 mg tablet 10 mg PO DAILY PRN allergy 05/24/23 symptoms #30 tabs famotidine 20 mg tablet 20 mg PO DAILY #14 tabs 05/24/23 hydroxyzine HCl 50 mg tablet 50 mg PO TID PRN itching #30 tabs 05/24/23 prednisone 20 mg tablet 40 mg (2 x 20 mg) PO DAILY 5 days 05/24/23 #10 tabs Allergies Allergy/AdvReac Type Severity Reaction Status Date / Time No Known Allergies Allergy Verified 05/03/23 21:19 [No Known Allergies*] Review of Systems Review of Systems: Yes all other systems are reviewed and are negative Constitutional: Constitutional: Reports no additional constitutional complaints, Denies body ache(s), Denies chills, Denies fever(s), Denies headache(s) and Denies weakness Eyes: Eyes: Reports no additional eye complaints and Denies change in vision ENT: Reports system reviewed and no additional complaints, except as documented, Denies dizziness, Denies headache(s), Denies nasal congestion, Denies nasal discharge and Denies neck pain Cardiovascular: Cardiovascular: Reports no additional cardiovascular complaints, Denies chest pain, Denies leg edema and Denies dyspnea Respiratory: Respiratory: Reports no additional respiratory complaints, Denies cough and Denies dyspnea Gastrointestinal: Gastrointestinal: Reports no additional gastrointestinal complaints, Denies abdominal pain, Denies diarrhea, Denies nausea and Denies vomiting Genitourinary: Genitourinary: Reports no additional female genitourinary complaints and Denies urinary incontinence Musculoskeletal: Musculoskeletal: Reports no additional musculoskeletal complaints, Denies back pain, Denies arthralgias, Denies joint swelling, Denies neck pain, Denies numbness and Denies tingling Integumentary/Breasts: Skin/Breast: Reports system reviewed and no additional complaints, except as docu and Reports rash Neurologic: Reports system reviewed and no additional complaints, except as documented, Denies Abnormal speech present, Denies dizziness, Denies headache(s), Denies numbness, Denies tingling and Denies weakness PMFSH Past Medical History Attestation statement: The following information was validated with the patient. Source: old records reviewed and nursing notes reviewed Onset Date is defined in the Problem List Problems that require an onset date and time if occurred within 24 hrs of arrival to the ED Aortic Dissection and Rupture; Neurologic impairment; Cardiopulmonary Arrest; Endotracheal Intubation; Insertion or Replacement of Mechanical Circulatory Assist Device Medical History Elevated liver enzymes Anxiety and depression Surgical History H/O right wrist surgery Social History Social History Housing: House Patient Tobacco Use Status: Never used Tobacco e-Cigarette/Vaping Use: Never Used service: No Current occupational status: employed 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, 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 Gender identity: Female Cognitive needs: No Hearing needs: No Vision needs: Yes (contacts) Physical Exam ED Vital Signs: Vital Signs - 24 hr 05/24/23 20:48 Temperature 97.5 F Pulse Rate 90 Respiratory Rate 19 Blood Pressure 137/92 H Pulse Oximetry 98 Oxygen Delivery Method Room Air BMI result Body Mass Index 29.4 Const General: cooperative, healthy appearing, comfortable and no acute distress Orientation/consciousness: patient oriented x3 Limitations: no limitations HENMT Head: Yes normal to inspection Ears: hearing grossly normal bilaterally General nose exam: Normal external nose present Face and sinus: Yes normal facial exam Mouth: Normal oral and palatal mucosa present Throat: Yes posterior oropharynx normal Eyes General: appearance normal, both eyes and all related structures Pupils: Equal, round and reactive pupils present Neck Neck: Yes normal visual inspection Chest Chest palpation & inspection: normal inspection of the chest Resp Effort & Inspection: normal respiratory effort Auscultation: clear to auscultation bilaterally Cardio Rate: regular rate Rhythm: regular rhythm Peripheral pulses: Peripheral pulses 2+ throughout GI Inspection: Yes normal to inspection Palpation (GI): Soft to palpation and nontender Auscultation: normal bowel sounds Back/Spine/Pelvis Thoracic/Lumbar Spine: thoracic and lumbar spine normal to inspection Skin General skin exam: no rashes or lesions noted Neuro General: patient oriented x3, no focal motor deficits and normal sensation to monofilament Cranial nerves: Yes Equal, round and reactive pupils present Cognition (Neuro): normal cognition Speech: No Abnormal speech present Gait exam (Neuro): Normal gait present Motor exam (neuro): 5/5 motor strength present throughout Extrem Other: To the left thigh surrounding the test to there is a raised urticarial area that is warm to touch. The area is blanchable. It is non sloughing. Medical Decision Making Medical Decision Making MDM Narrative: 23-year-old female previously healthy here with complaints of itching rash to the left thigh which developed after she was using a topical cream on her new tattoo. Patient reports she has had similar allergic reaction to this cream in the past. to the left thigh surrounding the test to there is a raised urticarial area that is warm to touch. The area is blanchable. It is non sloughing. I suspect a local allergic reaction secondary to recent use of a topical cream. Also consider a local cellulitis and so I will initiate the patient on oral prednisone, famotidine, certizine, cephalexin with hydroxyzine for itching as needed. Reviewed worrisome signs and symptoms of when to return to the emergency room. Comfortable plan for discharge home. Differential Diagnosis Differential Diagnoses: The differential diagnosis associated with the presentation includes Allergic reaction, cellulitis low concern for SJS, ten Admission/Observation Consideration of admission/observation: Escalation of care including admission/observation considered Independent Historian Clinical information obtained from an independent historian. History obtained from or confirmed by: Spouse Prescription Management I considered prescription management with: Antibiotic Discharge Plan Discharge Clinical Impression: Allergic reaction Patient Disposition: Home, Self-Care Instructions: General Allergic Reaction (ED) Additional Instructions: suspect allergic reaction to topical tattoo cream you used will start on different medication do not use that again. also possible start of infection given the scratching. return for worsening symptoms - fevers, redness, swelling or any other concerns. Prescriptions: New prednisone 20 mg tablet 40 mg PO DAILY 5 Days Qty: 10 0RF famotidine 20 mg tablet 20 mg PO DAILY Qty: 14 0RF cephalexin 500 mg capsule 500 mg PO QID Qty: 28 0RF cetirizine 10 mg tablet 10 mg PO DAILY PRN (Reason: allergy symptoms) Qty: 30 0RF hydroxyzine HCl 50 mg tablet 50 mg PO TID PRN (Reason: itching) Qty: 30 0RF No Action prednisone 20 mg tablet 40 mg PO DAILY 4 Days Qty: 8 0RF famotidine [Pepcid] 20 mg tablet 20 mg PO DAILY Qty: 14 0RF cephalexin 500 mg capsule 500 mg PO QID 7 Days Qty: 28 0RF cetirizine 10 mg tablet 10 mg PO DAILY PRN (Reason: allergy symptoms) Qty: 30 0RF hydroxyzine HCl 50 mg tablet 50 mg PO TID PRN (Reason: itching) Qty: 30 0RF Referrals: ED Physician,Generic [Physician] - 1 week
== END 2023-05-24 21:03 | disposition home or self-care (01) ==
LOC: HO.ED 20:58
PROVIDERS: Emergency Provider Emergency Medicine
DX: T78.49XA Other allergy, initial encounter (principal); L50.9 Urticaria, unspecified; X58.XXXA Exposure to other specified factors, initial encounter
CPT/HCPCS: 99282; 99283

== ENCOUNTER 2023-06-15 16:31 | Outpatient (AMB) | payer BC, MEDICAID, SELFPAY ==
[2023-06-15 16:36] VITALS: BP 116/82; PULSE 74; RESP 13; TEMP 36.4; O2SAT 98; BMI 29.3
--- NOTE | 2023-06-15 16:36 | A.OFFPC_ITS ---
Vital Signs 06/15/23 16:36 Height 5 ft 5 in Weight 176 lb 2 oz BMI 29.3 BP 116/82 Blood Pressure Location Rt brachial Position Sitting Respiration 13 Pulse 74 Pulse Source Pulse Oximeter Temp 97.5 F Temp Source Temporal Artery Scan Pulse Oximetry (%) 98 Oxygen Delivery Method Room Air Intake Visit Reasons: transfer from [facility] follow up allergy Manager Assembly Required: No Accompanied by: Self / Same As Patient Allergies No Known Allergies [No Known Allergies*] Allergy (Verified 06/15/23 16:54) Tobacco use date assessed: 06/15/23 Dental Screening Dental Screen Date: 06/15/23 Did you have a dental visit in the last 12 months?: Yes Did you have a dental problem in the last 6 months where you did not have access to dental care?: No Was dental information given to patient?: Patient has dentist HPI HPI Comments History of Present Illness Details 23-year-old female presents for transfer of care Her former PCP is [facility] who has no longer with the practice. Last physical exam was on 11/2021. Last blood work was almost a year ago She has history of transaminitis, anxiety, and depression She reports controlled anxiety and depression symptoms. She notes that her symptoms are intermittent and improved with psychotherapy. She stopped taking psychotropic medications because they were not effective. She stopped seeing a therapist since October 2022 because she did not have a health plan. Now that she has a new job with a new health plan, she plans on connecting with a therapist again She offers no complaints and denies acute symptoms at this time Last pap smear was in 2020: normal. 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 1. Little interest or pleasure in doing things: not at all 2. Feeling down, depressed, or hopeless: not at all 3. Trouble falling or staying asleep, or sleeping too much: several days 4. Feeling tired or having little energy: several days 5. Poor appetite or overeating: more than half the days 6. Feeling bad about yourself - or that you are a failure or have let yourself or your family down: several days 7. Trouble concentrating on things, such as reading the newspaper or watching television: not at all 8. Moving or speaking so slowly that other people could have noticed. Or the opposite - being so fidgety or restless that you have been moving around a lot more than usual: several days 9. Thoughts that you would be better off or of hurting yourself in some way: not at all Total score: 6 Depression Screening Interpretation: Positive Depression Screening Follow-up: Existing condition Depression Screening Done: Yes 20851 - PHQ-9 Billing: Yes Source: Developed by Drs. Bharathi Morrison, Christi Franklin, Christo Ballesteros and colleagues, with an educational mauri from [employer]. Thrive Questionnaire Date Thrive assessed: 06/15/23 I am a: Patient What is your living situation today?: I have a steady place to live Within the past 12 months, did the food you bought not last and you didn't have the money to get more?: Sometimes True Within the past 12 months, did you worry whether your food would run out before you got money to buy more?: Sometimes True Do you have trouble paying for medicines?: No Do you have trouble getting transportation to medical appointments?: No Do you have trouble paying your heating and electricity bill?: No Do you have trouble taking care of your child, family member or friend?: No Do you have trouble with day-to-day activities such as bathing, preparing meals, shopping, managing finances, etc.?: No Are you currently unemployed and looking for a job?: No Are you interested in more education?: No Please select the resources that you would like help with: None Currently or been in a relationship where the following occur: no concerns reported THRIVE Score: 2 AUDIT C Alcohol Use Questionnaire (AUDIT-C) 1. How often do you have a drink containing alcohol?: Monthly or less 2. How many drinks containing alcohol do you have on a typical day when you are drinking?: 1 or 2 3. How often do you have six or more drinks on one occasion?: Never Total Score: 1 DENISHA-7 AMB Questionnaire DENISHA-7 Date DENISHA - 7 assessed: 06/15/23 Feeling nervous, anxious, or on edge: 2 = More than half the days Not being able to stop or control worryin = Several days Worrying too much about different things: 1 = Several days Trouble relaxin = More than half the days Being so restless that it is hard to sit still: 2 = More than half the days Becoming easily annoyed or irritable: 3 = Nearly every day Feeling afraid as if something awful might happen: 1 = Several days Total DENISHA-7 score (0-4 normal; 5-9 mild; 10-14 moderate; 15-21 severe): 12 Source: Developed by Drs. Bharathi Morrison, Christi Franklin, Christo Ballesteros and colleagues, with an educational mauri from [employer]. DENISHA-7 Assessment Billing DENISHA-7 Assessment Tool: DENISHA-7 Assessment 46706 Physical exam (Primary Care) Vital Signs: Last Vital Signs Temp 97.5 F 06/15/23 16:36 Pulse 74 06/15/23 16:36 Resp 13 06/15/23 16:36 BP 116/82 06/15/23 16:36 Pulse Ox 98 06/15/23 16:36 Oxygen Delivery Method Room Air 06/15/23 16:36 BMI result Body Mass Index 29.3 Tobacco/Smoking Status: Tobacco use Status Tobacco use date assessed 07/06/22 05/03/23 20:04 Patient Tobacco Use Status Never used Tobacco 05/03/23 20:04 e-Cigarette/Vaping Use Never Used 05/03/23 20:04 Depression Screening Interpretation: Positive Depression Screening Follow-up: Existing condition Thrive Assessment: Date of Thrive Assessment Date Thrive assessed 07/06/22 05/03/23 20:04 Currently or been in a relationship where the following occur: no concerns reported Assessment and Plan Assessment & Plan (1) Normal physical exam: Code(s): Z00.00 - Encounter for general adult medical examination without abnormal findings Plan: No significant physical restrictions or limitations noted Healthy diet and routine exercise encouraged Advised to get blood work and urinalysis done and schedule a telehealth visit in 3 weeks for labs review. Fast for 10-12 hours, may drink water only, before getting blood work done Follow-up with symptoms or concerns Verbalized understanding and agreed with treatment plan (2) Anxiety and depression: Code(s): F41.9 - Anxiety disorder, unspecified; F32.9 - Major depressive disorder, single episode, unspecified Plan: PHQ-9 and DENISHA-7 scores revealed mild depression and moderate anxiety respectively Reports controlled symptoms Declines medication management Routine exercise encouraged Message sent to the community navigator to assist the patient to reestablish with a therapist Follow-up with worsening or new symptoms Verbalized understanding and agreed with treatment plan Orders: Orders Comprehensive [place]. Panel Fast Today Z00.00 - Encounter for general adult medical examination without abnormal findings Lipid Panel Today Z00.00 - Encounter for general adult medical examination without abnormal findings TSH reflex Free T4 Today Z00.00 - Encounter for general adult medical examination without abnormal findings Complete Blood Count Auto Diff Today Z00.00 - Encounter for general adult medical examination without abnormal findings UA CC w/rflx Micro + Cult Today Z00.00 - Encounter for general adult medical examination without abnormal findings Coding Level of Care Code Est Pt Prev Care 18-39y(90860) Diagnoses Normal physical exam Z00.00 Anxiety and depression F41.9; F32.9 Additional Codes DENISHA-7 Assessment Billing - DENISHA-7 Assessment Tool: DENISHA-7 Assessment [id number] ([id number])
== END 2023-06-15 17:29 | disposition home or self-care (01) ==
PROVIDERS: Visit Provider Nurse Practitioner Family
DX: Z00.00 Encounter for general adult medical examination without abnormal findings (principal); F41.9 Anxiety disorder, unspecified; F32.9 Major depressive disorder, single episode, unspecified
CPT/HCPCS: 96127; 99395

== ENCOUNTER 2023-06-17 09:00 | Outpatient (REF) | payer BC, MEDICAID, SELFPAY ==
[2023-06-17 09:37] LABS: MANUAL DIFF FLAG NO
[2023-06-17 10:54] LABS: Basophils Percent Auto 0.4 % (0-2); Eosinophils Absolute Auto 0.1 X10*3/uL (0.0-0.4); Eosinophils Percent Auto 1.3 % (0-4); Hemoglobin 13.7 g/dl (12.0-16.0); Imm Gran Abs Auto 0.02 X10*3/uL (0.00-0.03); Imm Gran Pct Auto 0.3 % (0.0-0.4); Lymphocytes Absolute Auto 2.4 X10*3/uL (1.2-4.9); Lymphocytes Percent Auto 34.4 % (20-40); Mean Corpuscular HGB Conc 33.4 g/dl (31.0-35.0); Mean Corpuscular Hemoglobin 28.9 pg (27.0-33.0); Mean Corpuscular Volume 86.5 fL (80.0-98.0); Mean Platelet Volume 9.8 fL (9.4-12.3); Monocytes Absolute Auto 0.5 X10*3/uL (0.1-1.2); Monocytes Percent Auto 7.4 % (2-11); Neutrophils Percent Auto 56.2 % (45-73); Platelet Count 340 X10*3/uL (160-400); Red Blood Count 4.74 X10*6/uL (4.20-5.50)
[2023-06-17 11:19] LABS: Appearance Urine Clear; Color Urine Yellow; Glucose Urine UA Negative (Negative); Leukocyte Esterase Urine Negative (Negative); Nitrite Urine Negative (Negative); PH 6.5 (5.0-9.0); UMIC TRIGGER UACC YES; Urine Blood Trace (Negative); Urine Ketones Negative (Negative); Urine Protein Negative (Neg-Trace)
[2023-06-17 11:26] LABS: Bacteria Urine None Seen (None Seen); Hyaline Casts Urine 0-2 /LPF (0-2); WBC Urine 0-5 /HPF (0-5)
[2023-06-17 11:52] LABS: Alanine Aminotransferase 42 U/L (0-31); Albumin Level 3.9 g/dL (3.5-5.0); Alkaline Phosphatase 74 U/L (39-117); Anion Gap 13 (12-20); Aspartate Amino Transferase 26 U/L (5-31); Bilirubin Total 0.6 mg/dL (0.0-1.0); Blood Urea Nitrogen 16 mg/dL (9-16); Calcium 9.6 mg/dL (8.4-10.2); Carbon Dioxide 21 mmol/L (22-29); Chloride 107 mmol/L (96-108); Cholesterol 167 mg/dL (<200); Estimated Glomerular Filt Rate > 60; Glucose Fasting 89 mg/dL (60-99); HDL Cholesterol 37 mg/dL (>40); LDL Cholesterol Calculated 111 mg/dL (<100); Potassium 3.7 mmol/L (3.3-5.1); Sodium 137 mmol/L (135-145); TSH reflex Free T4 0.63 uIU/mL (0.32-4.0); Total Protein 7.6 g/dL (6.5-8.0); Triglycerides 97 mg/dL (<150)
== END 2023-06-17 09:01 | disposition home or self-care (01) ==
LOC: HO.LAB 09:00
PROVIDERS: PCP Nurse Practitioner Family; Visit Provider Nurse Practitioner Family
DX: Z00.00 Encounter for general adult medical examination without abnormal findings (principal); Z20.2 Contact with and (suspected) exposure to infections with a predominantly sexual mode of transmission
CPT/HCPCS: 36415; 80053; 80061; 81001; 84443; 85025

== ENCOUNTER 2023-06-29 09:19 | Outpatient (AMB) | payer BC, MEDICAID, SELFPAY ==
--- NOTE | 2023-06-29 09:33 | A.OFFVIS_ITS ---
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 We will defer the pelvic exam at her request until a next visit. So today we discussed her health in general and her desire to get and wondering why it has not happened yet she says she has been trying for a couple of months although in the last month she had an allergic reaction to tattoo or to tattoos on her leg and she scratched them and they became infected and she was on 2 different antibiotics as well as other medication and she did not feel great in the last month and she also did not have what she had been interpreting as a twinge in her ovaries when she ovulated. 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 identity: Female Cognitive needs: No Hearing needs: Yes Vision needs: Yes (contacts) Female Reproductive History Menstrual Age of Menarche: 11 Duration of menses: 3-5 days Date of last menstrual period: 06/26/23 control method: none Total pregnancies: 0 Date of last pap smear: 04/21/21 (negative) History of abnormal pap smear: No Physical Exam Const General: healthy appearing, comfortable, no acute distress, well developed and alert Nutritional Appearance: average body habitus Orientation/consciousness: patient oriented x3 Limitations: no limitations HEENT Head: Yes normocephalic Neck Neck: Yes normal visual inspection Chest Chest palpation & inspection: normal inspection of the chest Breast/axilla inspection: normal inspection of the breasts and normal inspection of the axillae Breast/axilla palpation: normal palpation of the breasts and normal palpation of the axillae Resp Effort & Inspection: normal respiratory effort GI Inspection: Yes normal to inspection, No Abdominal wall edema and No distended Palpation (GI): Soft to palpation and nontender Neuro General: patient oriented x3 Assessment & Plan Assessment & Plan (1) Well woman exam (no gynecological exam): Code(s): Z00.00 - Encounter for general adult medical examination without abnormal findings (2) Patient desires : Code(s): Z31.9 - Encounter for procreative management, unspecified Plan Discussed the normal menstrual cycles, in terms of length of time for each part of the cycle, range of experiences for bleeding/periods, cramping and clots and the various ways of handling all of these including the various menstrual products available today and common use of non inflammatory medications such as ibuprofen to help with the cramping, and changes in vaginal and cervical discharge that occur throughout the changes in the menstrual cycle. Also discussed what is happening in the ovaries, with preparing to ovulate, ovulation, and what happens afterward as well. Discussed signs of ovulation including fertile appearing mucus, libido changes, breast changes, ovulatory pain and twinges, and the optimal /most risky times to become . Reviewed that menstrual cycles do not obey the printed calendar, but rather follow the body's own cycle discussed what can sometimes happen if the cycle is interrupted by other health events such as anovulatory cycles. Discussed other metabolic changes that have a very profound effect on menstrual cycles including weight and the increased hormones that occur in that setting. She is taking gummy vitamins and I discussed the role of folic acid. Also discussed options for care and delivery. Recommend that for first-time mom's serious consideration be given to choosing a practice where she can get to know the team that will be involved in her delivery. 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 Coding Level of Care Code Est Pt Level 3 (57181) Diagnoses Well woman exam (no gynecological exam) Z00.00 Patient desires Z31.9
== END 2023-06-29 10:39 | disposition home or self-care (01) ==
LOC: HO.HWSM 09:19
PROVIDERS: PCP Nurse Practitioner Family; Visit Provider Advanced Practice Midwife
DX: N92.0 Excessive and frequent menstruation with regular cycle (principal); Z31.9 Encounter for procreative management, unspecified
CPT/HCPCS: 99213

== ENCOUNTER → 2023-06-29 09:19 | Outpatient (BNVA) | payer BC, MEDICAID, SELFPAY | PROVIDERS: PCP Nurse Practitioner Family; Visit Provider Advanced Practice Midwife ==

== ENCOUNTER 2023-07-06 15:00 | Outpatient (AMB) | payer BC, SELFPAY ==
--- NOTE | 2023-07-06 14:56 | MHC.PC.OV ---
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 Allergies No Known Allergies [No Known Allergies*] Allergy (Verified 07/06/23 14:57) Tobacco use date assessed: 06/15/23 HPI HPI Comments History of Present Illness Details Patient presents for a telehealth visit for review of recent lab results She offers no complaints and denies acute symptoms at this time She notes she was contacted to establish with a therapist and she is currently in the process of filling out paperwork before she can schedule an appointment [facility] Medical History (Updated 07/06/23 @ 15:42 by Linnette Ramos CNP) Elevated liver enzymes Anxiety and depression Surgical History H/O right wrist surgery Social History Housing: House Patient Tobacco Use Status: Never used Tobacco e-Cigarette/Vaping Use: Never Used service: No 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 Bharathi Morrison, Christi Franklin, Christo Ballesteros and colleagues, with an educational mauri from [employer]. Review of Systems Const Details: Const Denies chills, Denies fatigue, Denies fever(s), Denies headache(s) and Denies weakness ENT Denies dizziness and Denies headache(s) Card Denies chest pain, Denies lightheadedness, Denies dyspnea and Denies other (Palpitations) Resp Denies cough, Denies dyspnea, Denies wheezing and Denies other ( shortness of breath) GI Denies abdominal pain, Denies melena, Denies hematochezia, Denies change in bowel habits, Denies dyspepsia and Denies nausea Denies hematuria and Denies dysuria Musc Denies abnormal gait, Denies myalgias, Denies arthralgias, Denies numbness and Denies tingling Skin/Breast Denies rash, Denies unusual bruising and Denies wounds Neuro Denies abnormal gait, Denies dizziness, Denies headache(s), Denies memory loss, Denies numbness, Denies Sensory deficit (Neuro), Denies tingling and Denies weakness Psych Denies anxiety, Denies depression, Denies memory loss Endo Denies cold intolerance, Denies fatigue, Denies heat intolerance, Denies polydipsia and Denies polyuria Aller/Immun Denies wheezing Physical exam (Primary Care) Tobacco/Smoking Status: Tobacco use Status Tobacco use date assessed 06/15/23 07/06/23 14:57 Patient Tobacco Use Status Never used Tobacco 07/06/23 14:57 e-Cigarette/Vaping Use Never Used 07/06/23 14:57 Thrive Assessment: Date of Thrive Assessment Date Thrive assessed 06/15/23 07/06/23 14:57 Const Other: Telehealth visit. No physical exam Telehealth Telehealth Location of provider rendering services: practice address Location of patient: other Patient Identification confirmed using: Name, : Yes Telehealth method: voice only Patient verbally consented to treatment: Yes Patient verbally consented to billing insurance company: Yes Patient informed of any privacy concerns related to visit: Yes Assessment and Plan Assessment & Plan (1) Elevated liver enzymes: Code(s): R74.8 - Abnormal levels of other serum enzymes Plan: Recent lab results reviewed with the patient ALT slightly elevated, 42 History of elevated ALT and AST She notes that she drinks alcohol occasionally and take Tylenol as needed for minor pain Likely hepatic steatosis Liver ultrasound ordered. 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
== END 2023-07-06 16:58 | disposition home or self-care (01) ==
LOC: HO.HMGFM 15:00
PROVIDERS: PCP Nurse Practitioner Family; Visit Provider Nurse Practitioner Family
DX: R74.8 Abnormal levels of other serum enzymes (principal); E78.6 Lipoprotein deficiency
CPT/HCPCS: 99441

== ENCOUNTER 2023-07-23 17:51 | Emergency (ER) | payer BC, SELFPAY ==
--- NOTE | 2023-07-23 17:59 | ED_ITS ---
HPI - General Adult General Chief complaint: Nausea/Vomiting/Diarrhea Stated complaint: N/V/D weakness/Lightheaded Time Seen by Provider: 07/23/23 21:22 Source: patient Mode of arrival: ambulatory Limitations: no limitations History of Present Illness HPI narrative: Patient other healthy other family member sick at home comes here with nausea vomiting diarrhea since 03:00. Vomited about 4 times and had diarrhea about 6 times. Patient also has body aches low-grade fever no sore throat no upper respiratory symptoms no recent travel /bad food intake Related Data Previous Rx's Medication Instructions Recorded loperamide 2 mg tablet 2 mg PO Q6H PRN loose stool #10 07/23/23 (Anti-Diarrheal (loperamide)) tabs ondansetron 4 mg disintegrating 4 mg PO Q6-8H PRN nausea and 07/23/23 tablet vomiting #10 tabs Allergies Allergy/AdvReac Type Severity Reaction Status Date / Time No Known Allergies Allergy Verified 07/06/23 14:57 [No Known Allergies*] Review of Systems 2 Review of Systems: Yes all other systems are reviewed and are negative PMFSH Past Medical History Medical History Elevated liver enzymes Anxiety and depression Surgical History H/O right wrist surgery Social History Social History Housing: House Patient Tobacco Use Status: Never used Tobacco Smoked in Last 30 Days: No e-Cigarette/Vaping Use: Never Used Use of substances other than those prescribed or required for medical reasons: No Advance Directives: No Advance Directives Information Provided: No Patient : No service: No 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 Oriented X3. No acute distress. Eyes: No pallor or icterus ENT: Pharynx normal. Oral Mucosa moist Neck: Normal inspection. Neck supple. CVS: Normal heart rate and rhythm. Pulses normal. Respiratory: No respiratory distress. Equal air entry bilateral, Abdomen: Soft and nontender. Bowel sounds are present, no mass palpable, no CVA tenderness Skin: Skin warm and dry. Normal skin color. Normal skin turgor. Extremities: No lower extremity edema. No calf tenderness Neuro: Oriented X 3. 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 Plan for labs, UA Medications Administered Discontinued Medications Generic Name Dose Route Start Last Admin Trade Name Freq PRN Reason Stop Dose Admin Acetaminophen/Butalbital/Caffeine 1 tab 07/23/23 22:30 07/23/23 22:39 Butalb/Acetamin/Caff 50/325/40 Tablet PO 07/23/23 22:31 1 tab ONCE ONE Administration Dicyclomine HCl 20 mg 07/23/23 21:39 07/23/23 21:52 Dicyclomine Hcl 10 Mg Capsule PO 07/23/23 21:40 20 mg ONCE ONE Administration Ondansetron HCl 4 mg 07/23/23 21:39 07/23/23 21:52 Ondansetron Odt 4 Mg Tab.Rapdis TRANSLINGU 07/23/23 21:40 4 mg ONCE ONE Administration Medical Decision Making Medical Decision Making [facility] Narrative: Patient has acute gastroenteritis with other family member same improved after p.o. medications taking p.o. fluids at the time of discharge Differential Diagnosis Differential Diagnoses: The differential diagnosis associated with the presentation includes Lab Data [facility] Lab Attestation statement: I reviewed the patient's lab results. 07/23/23 18:26 07/23/23 18:26 Labs: Lab Results 07/23/23 07/23/23 Range/Units 18:26 21:53 WBC 9.7 (4.8-10.8) X10*3/uL RBC 4.77 (4.20-5.50) X10*6/uL Hgb 14.0 (12.0-16.0) g/dl Hct 39.9 (37.0-47.0) % MCV 83.6 (80.0-98.0) fL MCH 29.4 (27.0-33.0) pg MCHC 35.1 H (31.0-35.0) g/dl RDW 12.0 (11.0-16.0) % Plt Count 305 (160-400) X10*3/uL MPV 9.5 (9.4-12.3) fL Immature Gran % (Auto) 0.8 H (0.0-0.4) % Neut % (Auto) 88.9 H (45-73) % Lymph % (Auto) 6.6 L (20-40) % [place] % (Auto) 3.4 (2-11) % Eos % (Auto) 0.1 (0-4) % Baso % (Auto) 0.2 (0-2) % Lymph # (Auto) 0.6 L (1.2-4.9) X10*3/uL [place] # (Auto) 0.3 (0.1-1.2) X10*3/uL Eos # (Auto) 0.0 (0.0-0.4) X10*3/uL Baso # (Auto) 0.0 (0.0-0.2) X10*3/uL Abs Immat Gran (auto) 0.08 H (0.00-0.03) X10*3/uL Absolute Neuts (auto) 8.6 H (2.0-8.3) x10*3/uL Absolute Nucleated RBC 0.000 (0.0-0.012) X10*3/uL Nucleated RBC % (auto) 0.0 (0.0-0.2) /100WBC Sodium 136 (135-145) mmol/L Potassium 3.5 (3.3-5.1) mmol/L Chloride 106 (96-108) mmol/L Carbon Dioxide 21 L (22-29) mmol/L Anion Gap 13 (12-20) BUN 17 H (9-16) mg/dL Creatinine 0.76 (0.5-1.4) mg/dL Estim Creat Clear Calc 117.9 Estimated GFR > 60 Random Glucose 109 (60-115) mg/dL Calcium 9.4 (8.4-10.2) mg/dL Total Bilirubin 0.8 (0.0-1.0) mg/dL AST 30 (5-31) U/L ALT 49 H (0-31) U/L Alkaline Phosphatase 81 (39-117) U/L Total Protein 7.7 (6.5-8.0) g/dL Albumin 4.1 (3.5-5.0) g/dL Lipase 18 (8-78) U/L Beta HCG, Quant < 2 mIU/mL Urine Color Yellow Urine Appearance Clear Urine pH 6.5 (5.0-9.0) Ur Specific [place] >= 1.030 H (1.005-1.025) Urine Protein Trace (Neg-Trace) mg/dL Urine Glucose (UA) Negative (Negative) mg/dL Urine Ketones Trace (Negative) mg/dL Urine Blood Large (3+) H (Negative) Urine Nitrite Negative (Negative) Ur Leukocyte Esterase Small (1+) H (Negative) Urine RBC >20 H (0-2) /HPF Urine WBC 11-20 H (0-5) /HPF Ur Squamous Epith Cells 3-5 (0-2) /HPF Urine Bacteria None Seen (None Seen) Hyaline Casts 0-2 (0-2) /LPF Influenza Type A (PCR) NEGATIVE (Negative) Influenza Type B (PCR) NEGATIVE (Negative) RSV RNA Qual (PCR) NEGATIVE (Negative) SARS-CoV-2 RNA (RT-PCR) NEGATIVE (Negative) Discharge Plan Discharge Clinical Impression: Gastroenteritis Patient Disposition: Home, Self-Care Instructions: Gastroenteritis (ED) Additional Instructions: Drink Plenty of fluids Medicine for nausea Your symptoms should get better in 3-5 days You may take Imodium if you have severe diarrhea Prescriptions: New ondansetron 4 mg tablet,disintegrating 4 mg PO Q6-8H PRN (Reason: nausea and vomiting) Qty: 10 0RF loperamide [Anti-Diarrheal (loperamide)] 2 mg tablet 2 mg PO Q6H PRN (Reason: loose stool) Qty: 10 0RF Interventions: ED Discharge Assessment Last Done: 07/23/23 23:08 Discharge Date/Time: 07/23/23 23:08
[2023-07-23 18:00] VITALS: BP 121/76; PULSE 108; RESP 16; TEMP 37.6; O2SAT 98; BMI 29.2
[2023-07-23 18:30] LABS: MANUAL DIFF FLAG NO
[2023-07-23 18:34] LABS: Basophils Percent Auto 0.2 % (0-2); Eosinophils Percent Auto 0.1 % (0-4); Hematocrit 39.9 % (37.0-47.0); Imm Gran Abs Auto 0.08 X10*3/uL (0.00-0.03); Imm Gran Pct Auto 0.8 % (0.0-0.4); Lymphocytes Absolute Auto 0.6 X10*3/uL (1.2-4.9); Lymphocytes Percent Auto 6.6 % (20-40); Mean Corpuscular HGB Conc 35.1 g/dl (31.0-35.0); Mean Corpuscular Hemoglobin 29.4 pg (27.0-33.0); Mean Corpuscular Volume 83.6 fL (80.0-98.0); Mean Platelet Volume 9.5 fL (9.4-12.3); Monocytes Absolute Auto 0.3 X10*3/uL (0.1-1.2); Monocytes Percent Auto 3.4 % (2-11); Neutrophils Absolute Auto 8.6 x10*3/uL (2.0-8.3); Neutrophils Percent Auto 88.9 % (45-73); Platelet Count 305 X10*3/uL (160-400); Red Blood Count 4.77 X10*6/uL (4.20-5.50); White Blood Count 9.7 X10*3/uL (4.8-10.8)
[2023-07-23 18:53] LABS: Alanine Aminotransferase 49 U/L (0-31); Albumin Level 4.1 g/dL (3.5-5.0); Alkaline Phosphatase 81 U/L (39-117); Anion Gap 13 (12-20); Aspartate Amino Transferase 30 U/L (5-31); Bilirubin Total 0.8 mg/dL (0.0-1.0); Blood Urea Nitrogen 17 mg/dL (9-16); Calcium 9.4 mg/dL (8.4-10.2); Carbon Dioxide 21 mmol/L (22-29); Chloride 106 mmol/L (96-108); Creatinine Clr Calc Pharmacy 117.9; Estimated Glomerular Filt Rate > 60; Glucose Random 109 mg/dL (60-115); Lipase 18 U/L (8-78); Potassium 3.5 mmol/L (3.3-5.1); Sodium 136 mmol/L (135-145); Total Protein 7.7 g/dL (6.5-8.0)
[2023-07-23 18:55] LABS: HCG Quantitative < 2 mIU/mL
[2023-07-23 19:11] LABS: Influenza A PCR NEGATIVE (Negative); Influenza B PCR NEGATIVE (Negative); Resp Syncy Virus RNA Qual PCR NEGATIVE (Negative); SARS COV2 PCR INHOUSE NEGATIVE (Negative)
[2023-07-23 21:30] VITALS: BP 104/72; PULSE 104; RESP 17; TEMP 37.2; O2SAT 97
[2023-07-23] MEDS: Ondansetron ODT 4 MG TAB.RAPDIS TRANSLINGU (21:52)
[2023-07-23] MEDS: Dicyclomine HCl 10 MG CAPSULE 20 MG PO (21:52)
[2023-07-23 21:59] LABS: Appearance Urine Clear; Color Urine Yellow; Glucose Urine UA Negative (Negative); Leukocyte Esterase Urine Small (1+) (Negative); Nitrite Urine Negative (Negative); PH 6.5 (5.0-9.0); Specific Gravity - Urine >= 1.030 (1.005-1.025); UMIC TRIGGER UACC YES; Urine Blood Large (3+) (Negative); Urine Ketones Trace mg/dL (Negative); Urine Protein Trace mg/dL (Neg-Trace)
[2023-07-23 22:01] LABS: Bacteria Urine None Seen (None Seen); Hyaline Casts Urine 0-2 /LPF (0-2); RBC Urine >20 /HPF (0-2); UACC Culture Trigger YES
[2023-07-23] MEDS: Butalb/Acetamin/Caff 50/325/40 TABLET 1 TAB PO (22:39)
--- NOTE | 2023-07-23 22:40 | PC.NURSE ---
pt c/o headache - medication administered per provider order.
== END 2023-07-23 23:08 | disposition home or self-care (01) ==
PROVIDERS: Physician Assistant; Emergency Provider Internal Medicine
DX: K52.9 Noninfective gastroenteritis and colitis, unspecified (principal); Z11.52 Encounter for screening for COVID-19; Z20.828 Contact with and (suspected) exposure to other viral communicable diseases
CPT/HCPCS: 0241U; 80053; 81001; 83690; 84702; 85025; 87086; 99283; 99284

== ENCOUNTER 2023-07-27 08:18 | Outpatient (REF) | payer BC, SELFPAY ==
--- NOTE | ~2023-07-27 | US_ITS ---
EXAMINATION: US ABDOMEN LIMITED CLINICAL INFORMATION: Elevated LFTs. COMPARISON: CT abdomen and pelvis 05/03/2017. TECHNIQUE: Real-time imaging of the right upper quadrant abdominal viscera. FINDINGS: PANCREAS: Head and body appear unremarkable. Tail not visualized. LIVER: The liver is normal in size. The liver contour is normal. Parenchymal echogenicity appears unremarkable. No focal hepatic lesion identified. No intrahepatic biliary duct dilatation is seen. GALLBLADDER: The gallbladder is physiologically distended without evidence of stones, sludge, polyps, wall thickening or pericholecystic fluid. Technologist reports negative sonographic Whiting's sign. COMMON BILE DUCT: Normal in caliber measuring 0.4 cm in diameter. RIGHT KIDNEY: No hydronephrosis. No renal calculi or focal parenchymal lesion identified. The kidney measures 10.2 cm in maximum dimension. FREE FLUID: None. US/US abdomen limited IMPRESSION: Normal right upper quadrant ultrasound examination.
== END 2023-07-27 08:19 | disposition home or self-care (01) ==
LOC: HO.US 08:18
PROVIDERS: PCP Nurse Practitioner Family; Visit Provider Nurse Practitioner Family
DX: R74.8 Abnormal levels of other serum enzymes (principal)
CPT/HCPCS: 76705

== ENCOUNTER 2023-09-17 09:27 | Outpatient (REF) | payer BC, MEDICAID, SELFPAY ==
[2023-09-17 11:50] LABS: Appearance Urine Clear; Color Urine Yellow; Glucose Urine UA Negative (Negative); Leukocyte Esterase Urine Negative (Negative); Nitrite Urine Negative (Negative); PH 6.5 (5.0-9.0); UMIC TRIGGER UACC YES; Urine Blood Moderate (2+) (Negative); Urine Ketones Negative (Negative); Urine Protein Negative (Neg-Trace)
[2023-09-17 12:14] LABS: Bacteria Urine None Seen (None Seen); Hyaline Casts Urine 0-2 /LPF (0-2); WBC Urine 0-5 /HPF (0-5)
[2023-09-18 04:27] LABS: HBS Num1 31.72 mIU/mL (0-7.99); ~Hepatitis B Surface Antibody REACTIVE (Nonreactive)
== END 2023-09-17 09:28 | disposition home or self-care (01) ==
LOC: HO.WFDLDS 09:27
PROVIDERS: Nurse Practitioner Family; Visit Provider Nurse Practitioner Family
DX: Z00.00 Encounter for general adult medical examination without abnormal findings (principal); Z11.59 Encounter for screening for other viral diseases
CPT/HCPCS: 36415; 81001; 86706

== ENCOUNTER 2023-10-20 12:49 | Outpatient (AMB) | payer BC, SELFPAY ==
--- NOTE | 2023-10-20 12:50 | MHC.OFFWIV ---
Intake Vital Signs 10/20/23 12:52 Height 5 ft 6 in Weight 178 lb 2 oz BMI 28.7 BP 112/78 Blood Pressure Location Lt brachial Position Sitting Respiration 16 Pulse 80 Pulse Source Pulse Oximeter Intake Visit Reasons: ep/ react to something pain in left eye body [facility] Patient Tobacco Use Status: Never used Tobacco Allergies No Known Allergies [No Known Allergies*] Allergy (Verified 07/06/23 14:57) Medication List - Last Reconciled 10/20/23 by Era Roque PA-C HPI ep/ react to something pain in left eye body [facility] HPI Details Patient is a 23-year-old female who presents today with complaints of itching and a rash on her face, surrounding her eyes. She states that yesterday she went to get her eyebrows waxed and they used some sort of lotion which caused her skin to react. She states that her eye was puffy, red and bumpy. She states that she has been scratching so much that her left eye is also a little irritated from this. No drainage. Denies any fevers or chills. Has not taken anything yet for this. States that she was recently here for an allergic contact dermatitis following a tattoo and was just on prednisone. She says that she really does not want to be on a steroid again and would like to see an ocean export agent. 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 There is a papular, erythematous, blanching, fine rash noted surrounding the periorbital area and extending up onto the forehead and over the maxillary region. It is more concentrated surrounding the eyebrows and bilateral lower lids. Sclera WNL. The left conjunctiva slightly injected and erythematous. No drainage noted. No periorbital tenderness. Neck Thyroid: Thyroid normal Lymphatic: no lymphadenopathy noted Resp Auscultation: clear to auscultation bilaterally Cardio Rate: regular rate Rhythm: regular rhythm Heart sounds: S1 normal heart sound present and S2 normal heart sound present Neuro General: patient oriented x3, gait normal and no focal motor deficits Assessment & Plan Assessment & Plan (1) Allergic contact dermatitis: Code(s): L23.9 - Allergic contact dermatitis, unspecified cause Qualifiers: Contact dermatitis trigger: cosmetics Qualified Code(s): L23.2 - Allergic contact dermatitis due to cosmetics Plan: We will treat with triamcinolone cream. Discussed risks and benefits and adverse effects of this medication including atrophy of the skin. Advised that it can also cause dependence of the skin and she needs to avoid prolonged use. If no improvement she is to follow up. She has antihistamines at home and will use Benadryl. We discussed the time cool compresses. She also has allergy eyedrops at home. She will follow up if no improvement or if anything worsens or changes. Referral to Allergy and immunology provided. Patient understands and agrees with the plan. Orders: Referrals Allergy & Immunology Referral L23.9 - Allergic contact dermatitis, unspecified cause Medications: New triamcinolone acetonide 0.025% 1 appl topical BID 7 days 15 grams 0RF Coding Level of Care Code Est Pt Level 3 (90460) Diagnoses Allergic contact dermatitis due to cosmetics L23.2 Contact dermatitis trigger: cosmetics
[2023-10-20 12:52] VITALS: BP 112/78; PULSE 80; RESP 16; BMI 28.7
== END 2023-10-20 13:09 | disposition home or self-care (01) ==
PROVIDERS: Visit Provider Physician Assistant
DX: L23.2 Allergic contact dermatitis due to cosmetics (principal)
CPT/HCPCS: 99213

== ENCOUNTER 2023-11-29 16:02 | Outpatient (AMB) | payer BC, SELFPAY ==
--- NOTE | 2023-11-29 16:04 | MHC.PC.OV ---
Vital Signs 11/29/23 16:09 Weight 180 lb 2 oz BP 118/74 Blood Pressure Location Rt brachial Position Sitting Respiration 16 Pulse 91 Pulse Source Pulse Oximeter Temp 97.1 F Temp Source Temporal Artery Scan Pulse Oximetry (%) 97 Oxygen Delivery Method Room Air Intake Visit Reasons: allergy f/u Intake Note: patient here for allergies. [employer] Required: No Is last menstrual period known: Yes Last menstrual period: 11/29/23 Post menopausal: No Patient : No Allergies No Known Allergies [No Known Allergies*] Allergy (Verified 11/29/23 16:30) Tobacco use date assessed: 06/15/23 Dental Screening Dental Screen Date: 11/29/23 Did you have a dental visit in the last 12 months?: Yes Did you have a dental problem in the last 6 months where you did not have access to dental care?: No Was dental information given to patient?: Patient has dentist HPI HPI Comments History of Present Illness Details 23-year-old female presents for contact dermatitis follow-up. She was evaluated and treated for contact dermatitis on 10/20/2023. She presented with itching and rash to her face, surrounding her eyes. She attributed her signs and symptoms to lotion that was applied to her face after she had her eyebrows waxed. She did not want to be prescribed prednisone. She was prescribed triamcinolone cream and referred to an administrative program specialist. She notes that her facial itching and rash has resolved. However, she has not been contacted to schedule appointment for the administrative program specialist. She plans on calling to make an appointment. She reports intermittent anxiety symptoms which she attributes to work related stressors. 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 She admits to history of psychotherapy. However, she did not schedule an appointment to establish with [facility] for psychotherapy due to busy work schedule. She plans to call to make an appointment. No acute symptoms at this time. 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 1. Little interest or pleasure in doing things: several days 2. Feeling down, depressed, or hopeless: not at all 3. Trouble falling or staying asleep, or sleeping too much: nearly every day 4. Feeling tired or having little energy: several days 5. Poor appetite or overeating: more than half the days 6. Feeling bad about yourself - or that you are a failure or have let yourself or your family down: not at all 7. Trouble concentrating on things, such as reading the newspaper or watching television: several days 8. Moving or speaking so slowly that other people could have noticed. Or the opposite - being so fidgety or restless that you have been moving around a lot more than usual: not at all 9. Thoughts that you would be better off or of hurting yourself in some way: not at all Total score: 8 Depression Screening Interpretation: Positive Depression Screening Follow-up: Existing condition Depression Screening Done: Yes Source: Developed by Drs. Bharathi Morrison, Christi Franklin, Christo Ballesteros and colleagues, with an educational mauri from [employer]. Thrive Questionnaire Date Thrive assessed: 06/15/23 AUDIT C Alcohol Use Questionnaire (AUDIT-C) 1. How often do you have a drink containing alcohol?: Monthly or less 2. How many drinks containing alcohol do you have on a typical day when you are drinking?: 1 or 2 3. How often do you have six or more drinks on one occasion?: Less than monthly Total Score: 2 DENISHA-7 AMB Questionnaire DENISHA-7 Date DENISHA - 7 assessed: 06/15/23 Feeling nervous, anxious, or on edge: 2 = More than half the days Not being able to stop or control worryin = Several days Worrying too much about different things: 1 = Several days Trouble relaxin = More than half the days Being so restless that it is hard to sit still: 2 = More than half the days Becoming easily annoyed or irritable: 2 = More than half the days Feeling afraid as if something awful might happen: 1 = Several days Total DENISHA-7 score (0-4 normal; 5-9 mild; 10-14 moderate; 15-21 severe): 11 Source: Developed by Drs. Bharathi Morrison, Christi Franklin, Christo Ballesteros and colleagues, with an educational mauri from [employer]. Review of Systems Const Details: Const Denies chills, Denies fatigue, Denies fever(s), Denies headache(s) and Denies weakness ENT Denies dizziness and Denies headache(s) Card Denies chest pain, Denies lightheadedness, Denies dyspnea and Denies other (Palpitations) Resp Denies cough, Denies dyspnea, Denies wheezing and Denies other ( shortness of breath) GI Denies abdominal pain, Denies melena, Denies hematochezia, Denies change in bowel habits, Denies dyspepsia and Denies nausea Denies hematuria and Denies dysuria Musc Denies abnormal gait, Denies myalgias, Denies arthralgias, Denies numbness and Denies tingling Skin/Breast Denies rash, Denies unusual bruising and Denies wounds Neuro Denies abnormal gait, Denies dizziness, Denies headache(s), Denies memory loss, Denies numbness, Denies Sensory deficit (Neuro), Denies tingling and Denies weakness Psych Denies anxiety, Denies depression, Denies memory loss Endo Denies cold intolerance, Denies fatigue, Denies heat intolerance, Denies polydipsia and Denies polyuria Aller/Immun Denies wheezing Physical exam (Primary Care) Vital Signs: Last Vital Signs Temp 97.1 F 11/29/23 16:09 Pulse 91 11/29/23 16:09 Resp 16 11/29/23 16:09 BP 118/74 11/29/23 16:09 Pulse Ox 97 11/29/23 16:09 Oxygen Delivery Method Room Air 11/29/23 16:09 Tobacco/Smoking Status: Tobacco use Status Tobacco use date assessed 06/15/23 11/29/23 16:05 Patient Tobacco Use Status Never used Tobacco 11/29/23 16:05 e-Cigarette/Vaping Use Never Used 11/29/23 16:05 Depression Screening Interpretation: Positive Depression Screening Follow-up: Existing condition Thrive Assessment: Date of Thrive Assessment Date Thrive assessed 06/15/23 11/29/23 16:05 Const Other: General: no acute distress and well developed Nutritional Appearance: well nourished Orientation/consciousness: patient oriented x3 HENMT Head: Yes normocephalic and Yes atraumatic Eyes General: appearance normal, both eyes and all related structures Pupils: Equal, round and reactive pupils present EOM: EOMs intact bilaterally Resp Effort & Inspection: normal respiratory effort Auscultation: clear to auscultation bilaterally Cardio Rate: regular rate Rhythm: regular rhythm Heart sounds: S1 normal heart sound present, S2 normal heart sound present, no gallops, no murmurs and no rubs GI Palpation (GI): No Abdominal aortic bruit present, Soft to palpation, nontender, No hepatosplenomegaly present and No Rebound tenderness present Auscultation: normal bowel sounds General: Yes no CVA tenderness Back/Spine/Pelvis Back: no CVA tenderness Cervical Spine: cervical ROM normal and No Cervical spine tenderness Thoracic/Lumbar Spine: thoraco-lumbar ROM normal, No pain with thoraco-lumbar ROM, No thoracic spinal tenderness and No lumbar spinal tenderness Extrem General: Yes normal to inspection, No edema and No calf tenderness Skin General: warm and dry. Normal skin color. Normal skin turgor Lesions: no lesions Rashes: no rashes Trauma: no lacerations or abrasions Wounds: no wounds Nails: normal Neuro General: patient oriented x3, gait normal and no focal neuro deficit Cranial nerves: Yes Equal, round and reactive pupils present Cognition (Neuro): normal cognition Gait exam (Neuro): Normal gait present Sensory Exam: No Sensory deficit (Neuro) Psych Appearance: grossly normal Affect: normal affect Attitude: cooperative Thought process: Normal thought process present Assessment and Plan Assessment & Plan (1) Allergic contact dermatitis: Code(s): L23.9 - Allergic contact dermatitis, unspecified cause Qualifiers: Contact dermatitis trigger: cosmetics Qualified Code(s): L23.2 - Allergic contact dermatitis due to cosmetics Plan: Resolved No facial swelling or rash noted (2) Anxiety and depression: Code(s): F41.9 - Anxiety disorder, unspecified; F32.9 - Major depressive disorder, single episode, unspecified Plan: DENISHA-7 in PHQ-9 scores revealed moderate depression mild anxiety respectively Routine exercise encouraged Encouraged to call and make an appointment with [facility] for psychotherapy Follow-up in 2 months or sooner with worsening or new symptoms Verbalized understanding and agreed with the treatment plan Coding Level of Care Code Est Pt Level 4 (99151) Complex EM visit Add On G2211 Diagnoses Allergic contact dermatitis due to cosmetics L23.2 Contact dermatitis trigger: cosmetics Anxiety and depression F41.9; F32.9
[2023-11-29 16:09] VITALS: BP 118/74; PULSE 91; RESP 16; TEMP 36.2; O2SAT 97
== END 2023-11-29 16:45 | disposition home or self-care (01) ==
PROVIDERS: Visit Provider Nurse Practitioner Family
DX: L23.2 Allergic contact dermatitis due to cosmetics (principal); F41.9 Anxiety disorder, unspecified; F33.9 Major depressive disorder, recurrent, unspecified
CPT/HCPCS: 99214

== ENCOUNTER 2024-02-04 08:25 | Outpatient (AMB) | payer BC, SELFPAY ==
--- NOTE | 2024-02-04 08:27 | A.OFFPC_ITS ---
Vital Signs 02/04/24 08:32 Height 5 ft 6 in Weight 171 lb 8 oz BMI 27.7 BP 108/80 Blood Pressure Location Rt brachial Position Sitting Respiration 16 Pulse 87 Pulse Source Pulse Oximeter Temp 98.1 F Temp Source Oral Pulse Oximetry (%) 97 Oxygen Delivery Method Room Air Intake Visit Reasons: follow up2 mos anxiety, depression Intake Note: patient here for 2 month follow up for anxiety and depression [employer] Required: No Is last menstrual period known: Yes Last menstrual period: 02/11/24 Post menopausal: No Patient : No Allergies No Known Allergies [No Known Allergies*] Allergy (Verified 02/04/24 08:32) Tobacco use date assessed: 02/04/24 Dental Screening Dental Screen Date: 02/04/24 Did you have a dental visit in the last 12 months?: Yes Did you have a dental problem in the last 6 months where you did not have access to dental care?: No Was dental information given to patient?: Patient has dentist HPI HPI Comments History of Present Illness Details 23-year-old female presents for anxiety and depression follow-up She is not on prescription medications She reports controlled anxiety and depressive symptoms She notes personal life stressors She admits to making healthy lifestyle changes, including diet and routine exercise. She is excited that she lost 9 lb since her last visit. 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 1. Little interest or pleasure in doing things: more than half the days 2. Feeling down, depressed, or hopeless: several days 3. Trouble falling or staying asleep, or sleeping too much: more than half the days 4. Feeling tired or having little energy: more than half the days 5. Poor appetite or overeating: several days 6. Feeling bad about yourself - or that you are a failure or have let yourself or your family down: several days 7. Trouble concentrating on things, such as reading the newspaper or watching television: several days 8. Moving or speaking so slowly that other people could have noticed. Or the opposite - being so fidgety or restless that you have been moving around a lot more than usual: not at all 9. Thoughts that you would be better off or of hurting yourself in some way: not at all Total score: 10 Depression Screening Interpretation: Positive Depression Screening Follow-up: Existing condition and Community Mental Health Worker F/U Depression Screening Done: Yes 26876 - PHQ-9 Billing: Yes Source: Developed by Drs. Bharathi Morrison, Crhisti Franklin, Christo Ballesteros and colleagues, with an educational mauri from [employer]. Thrive Questionnaire Date Thrive assessed: 06/15/23 DENISHA-7 AMB Questionnaire DENISHA-7 Date DENISHA - 7 assessed: 02/04/24 Feeling nervous, anxious, or on edge: 2 = More than half the days Not being able to stop or control worryin = More than half the days Worrying too much about different things: 2 = More than half the days Trouble relaxin = More than half the days Being so restless that it is hard to sit still: 2 = More than half the days Becoming easily annoyed or irritable: 2 = More than half the days Feeling afraid as if something awful might happen: 1 = Several days Total DENISHA-7 score (0-4 normal; 5-9 mild; 10-14 moderate; 15-21 severe): 13 Source: Developed by Drs. Bharathi Morrison, Christi Franklin, Christo Ballesteros and colleagues, with an educational mauri from [employer]. DENISHA-7 Assessment Billing DENISHA-7 Assessment Tool: EDNISHA-7 Assessment 10818 Review of Systems Const Details: Const Denies chills, Denies fatigue, Denies fever(s), Denies headache(s) and Denies weakness ENT Denies dizziness and Denies headache(s) Card Denies chest pain, Denies lightheadedness, Denies dyspnea and Denies other (Palpitations) Resp Denies cough, Denies dyspnea, Denies wheezing and Denies other ( shortness of breath) GI Denies abdominal pain, Denies melena, Denies hematochezia, Denies change in bowel habits, Denies dyspepsia and Denies nausea Denies hematuria and Denies dysuria Musc Denies abnormal gait, Denies myalgias, Denies arthralgias, Denies numbness and Denies tingling Skin/Breast Denies rash, Denies unusual bruising and Denies wounds Neuro Denies abnormal gait, Denies dizziness, Denies headache(s), Denies memory loss, Denies numbness, Denies Sensory deficit (Neuro), Denies tingling and Denies weakness Psych Denies anxiety, Denies depression, Denies memory loss Endo Denies cold intolerance, Denies fatigue, Denies heat intolerance, Denies polydipsia and Denies polyuria Aller/Immun Denies wheezing Physical exam (Primary Care) Tobacco/Smoking Status: Tobacco use Status Tobacco use date assessed 06/15/23 01/12/24 15:20 Patient Tobacco Use Status Never used Tobacco 01/12/24 15:20 e-Cigarette/Vaping Use Never Used 01/12/24 15:20 Depression Screening Interpretation: Positive Depression Screening Follow-up: Existing condition and Community Mental Health Worker F/U Thrive Assessment: Date of Thrive Assessment Date Thrive assessed 06/15/23 01/12/24 15:20 Const Other: General: no acute distress and well developed Nutritional Appearance: well nourished Orientation/consciousness: patient oriented x3 HENMT Head: Yes normocephalic and Yes atraumatic Eyes General: appearance normal, both eyes and all related structures Pupils: Equal, round and reactive pupils present EOM: EOMs intact bilaterally Resp Effort & Inspection: normal respiratory effort Auscultation: clear to auscultation bilaterally Cardio Rate: regular rate Rhythm: regular rhythm Heart sounds: S1 normal heart sound present, S2 normal heart sound present, no gallops, no murmurs and no rubs GI Palpation (GI): No Abdominal aortic bruit present, Soft to palpation, nontender, No hepatosplenomegaly present and No Rebound tenderness present Auscultation: normal bowel sounds General: Yes no CVA tenderness Back/Spine/Pelvis Back: no CVA tenderness Cervical Spine: cervical ROM normal and No Cervical spine tenderness Thoracic/Lumbar Spine: thoraco-lumbar ROM normal, No pain with thoraco-lumbar ROM, No thoracic spinal tenderness and No lumbar spinal tenderness Extrem General: Yes normal to inspection, No edema and No calf tenderness Skin General: warm and dry. Normal skin color. Normal skin turgor Neuro General: patient oriented x3, gait normal and no focal neuro deficit Cranial nerves: Yes Equal, round and reactive pupils present Cognition (Neuro): normal cognition Gait exam (Neuro): Normal gait present Sensory Exam: No Sensory deficit (Neuro) Psych Appearance: grossly normal Affect: normal affect Attitude: cooperative Thought process: Normal thought process present Assessment and Plan Assessment & Plan (1) Anxiety and depression: Code(s): F41.9 - Anxiety disorder, unspecified; F32.9 - Major depressive disorder, single episode, unspecified Plan: She reports controlled anxiety and depressive symptoms PHQ-9 and DENISHA-7 scores revealed moderate depression and anxiety Declines psychotropic medications at this time. She is willing to start psychotherapy Routine exercise encouraged She met with the [facility] who will refer her to a therapist Encouraged to follow-up for an extended physical exam on/after 06/15/2024 or sooner with worsening or new symptoms Verbalized understanding and agreed with the plan Coding Level of Care Code Est Pt Level 3 (69183) Diagnoses Anxiety and depression F41.9; F32.9 Additional Codes DENISHA-7 Assessment Billing - DENISHA-7 Assessment Tool: DENISHA-7 Assessment 01901 ([id number])
[2024-02-04 08:32] VITALS: BP 108/80; PULSE 87; RESP 16; TEMP 36.7; O2SAT 97; BMI 27.7
== END 2024-02-04 08:56 | disposition home or self-care (01) ==
PROVIDERS: Visit Provider Nurse Practitioner Family
DX: F41.9 Anxiety disorder, unspecified (principal); F32.9 Major depressive disorder, single episode, unspecified
CPT/HCPCS: 99213

== ENCOUNTER 2024-02-05 13:45 | Outpatient (AMB) | payer BC, SELFPAY ==
--- NOTE | 2024-02-05 13:47 | AM.OFFWIN_ITS ---
Intake Vital Signs 02/05/24 14:00 Height 5 ft 6 in Weight 173 lb BMI 27.9 BP 118/82 Blood Pressure Location Rt brachial Position Sitting Pulse 68 Pulse Source Pulse Oximeter Pulse Oximetry (%) 98 Oxygen Delivery Method Room Air Intake Visit Reasons: EP UTI? Intake Note: Patient here for UTI symptoms, frequent urination and burning that started yest erday after holding in her urine for a while. Patient Tobacco Use Status: Never used Tobacco Allergies No Known Allergies [No Known Allergies*] Allergy (Verified 02/05/24 14:01) Do you need a note to return to daycare/school/sports/work: No HPI HPI Comments History of Present Illness Details 23 y/o female patient who presents to [facility] walk in clinic with c/o Urinary symptoms since last night. She does also reports some lower abdominal cramping and fullness. She does reports some vaginal discharge but denies itching or odor. She is sexually active with 1 male partner and is trying to conceive. LMP: 01/11/24 - no protection. Denies any possibility of STIs. 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 identity: Female Cognitive needs: No Hearing needs: Yes Vision needs: Yes (contacts) Female Reproductive History Menstrual Age of Menarche: 11 Review of Systems Const All systems reviewed & are unremarkable except as noted in HPI and below Physical Exam Vital Signs: Last Vital Signs Pulse 68 02/05/24 14:00 BP 118/82 02/05/24 14:00 Pulse Ox 98 02/05/24 14:00 Oxygen Delivery Method Room Air 02/05/24 14:00 BMI result Body Mass Index 27.9 Const General: cooperative and no acute distress Orientation/consciousness: patient oriented x3 General: Yes no CVA tenderness Back/Spine/Pelvis Back: no CVA tenderness Skin General skin exam: no rashes or lesions noted Neuro General: patient oriented x3, gait normal and moves all extremities Psych Speech and movement: Normal speech and movement present Results AMB Urinalysis, Automated UA Leukoctes 15 Rafael/uL Last Edit by Uriah Puckett [facility] on 02/05/24 14:0 4 UA Nitrite Negative Last Edit by Uriah Puckett [facility] on 02/05/24 14:04 UA Urobilinogen 0.2 mg/dL Last Edit by Uriah Puckett [facility] on 02/05/24 14:04 UA Protein 15 mg/dL Last Edit by Uriah Puckett [facility] on 02/05/24 14:04 UA pH 5.5 Last Edit by Uriah Puckett [facility] on 02/05/24 14:04 UA Blood 80 Stef/uL Last Edit by Uriah Puckett [facility] on 02/05/24 14:04 UA Specific [place] 1.030 Last Edit by Uriah Puckett [facility] on 02/05/24 14:04 UA Ketone Negative Last Edit by Uriah Puckett [facility] on 02/05/24 14:04 UA Bilirubin 1 mg/dL Last Edit by Uriah Puckett [facility] on 02/05/24 14:04 UA Glucose 0 mg/dL Last Edit by Uriah Puckett [facility] on 02/05/24 14:04 Results Reviewed Results Reviewed: Laboratory Last Values Urine pH (Auto) 5.5 02/05/24 14:02 Specific [place] (Auto) 1.030 02/05/24 14:02 Urine Protein (Auto) 15 mg/dL 02/05/24 14:02 Glucose (UA)(Auto) 0 mg/dL 02/05/24 14:02 Urine Ketones (Auto) Negative 02/05/24 14:02 Urine Blood (Auto) 80 Stef/uL 02/05/24 14:02 Urine Nitrite (Auto) Negative 02/05/24 14:02 Urine Bilirubin (Auto) 1 mg/dL 02/05/24 14:02 Urine Urobilinogen (Auto) 0.2 mg/dL 02/05/24 14:02 Leukocyte Esterase (Auto) 15 Rafael/uL 02/05/24 14:02 Assessment & Plan Assessment & Plan (1) Urinary tract infection symptoms: Code(s): R39.9 - Unspecified symptoms and signs involving the genitourinary system Plan: Rapid U/A negative (very small trace of Leuco, prob contamination). Advised Pt to hydrate well, urinate immediately after intercourse. RTC if symptoms not better by Wednesday. Plan DDx's: Vaginitis vs [place] vs UTI Will continue to monitor Orders: Orders AMB Urinalysis Automated Today Z13.9 - Encounter for screening, unspecified Coding Level of Care Code Est Pt Level 3 (28206) Diagnoses Urinary tract infection symptoms R39.9 Time Spent (min) 15
[2024-02-05 14:00] VITALS: BP 118/82; PULSE 68; O2SAT 98; BMI 27.9
== END 2024-02-05 14:14 | disposition home or self-care (01) ==
PROVIDERS: PCP Nurse Practitioner Family; Visit Provider Nurse Practitioner Family
DX: R39.9 Unspecified symptoms and signs involving the genitourinary system (principal)
CPT/HCPCS: 81003; 99213

== ENCOUNTER 2024-02-14 10:49 | Outpatient (AMB) | payer BC, SELFPAY ==
--- NOTE | 2024-02-14 10:56 | MHC.PC.OV ---
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 She notes that she had a couple positive home urine tests. She notes that the last day of her last menstrual cycle was 03/17/2024. She notes that her only complaint today is headache for the past 3 days. 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 Bharathi Morrison, Christi Franklin, Christo Ballesteros and colleagues, with an educational mauri from [employer] Review of Systems Const Details: Const Denies chills, Denies fatigue, Denies fever(s), Reports headache(s) and Denies weakness ENT Denies dizziness and Denies headache(s) Card Denies chest pain, Denies lightheadedness, Denies dyspnea and Denies other (Palpitations) Resp Denies cough, Denies dyspnea, Denies wheezing and Denies other ( shortness of breath) GI Denies abdominal pain, Denies melena, Denies hematochezia, Denies change in bowel habits, Denies dyspepsia and Denies nausea Denies hematuria and Denies dysuria Musc Denies abnormal gait, Denies myalgias, Denies arthralgias, Denies numbness and Denies tingling Skin/Breast Denies rash, Denies unusual bruising and Denies wounds Neuro Denies abnormal gait, Denies dizziness, Reports headache(s), Denies memory loss, Denies numbness, Denies Sensory deficit (Neuro), Denies tingling and Denies weakness Endo Denies cold intolerance, Denies fatigue, Denies heat intolerance, Denies polydipsia and Denies polyuria Aller/Immun Denies wheezing Physical exam (Primary Care) Vital Signs: Last Vital Signs Temp 97.8 F 02/14/24 11:06 Pulse 91 02/14/24 11:06 Resp 16 02/14/24 11:06 BP 108/80 02/14/24 11:06 Pulse Ox 98 02/14/24 11:06 Oxygen Delivery Method Room Air 02/14/24 11:06 BMI result Body Mass Index 27.8 Tobacco/Smoking Status: Tobacco use Status Tobacco use date assessed 02/14/24 02/14/24 11:05 Patient Tobacco Use Status Never used Tobacco 02/14/24 10:58 e-Cigarette/Vaping Use Never Used 02/14/24 10:58 Thrive Assessment: Date of Thrive Assessment Date Thrive assessed 06/15/23 02/14/24 10:58 Const Other: General: no acute distress and well developed Nutritional Appearance: well nourished Orientation/consciousness: patient oriented x3 HENMT Head: Yes normocephalic and Yes atraumatic Eyes General: appearance normal, both eyes and all related structures Pupils: Equal, round and reactive pupils present EOM: EOMs intact bilaterally Resp Effort & Inspection: normal respiratory effort Auscultation: clear to auscultation bilaterally Cardio Rate: regular rate Rhythm: regular rhythm Heart sounds: S1 normal heart sound present, S2 normal heart sound present, no gallops, no murmurs and no rubs GI Palpation (GI): No Abdominal aortic bruit present, Soft to palpation, nontender, No hepatosplenomegaly present and No Rebound tenderness present Auscultation: normal bowel sounds General: Yes no CVA tenderness Back/Spine/Pelvis Back: no CVA tenderness Cervical Spine: cervical ROM normal and No Cervical spine tenderness Thoracic/Lumbar Spine: thoraco-lumbar ROM normal, No pain with thoraco-lumbar ROM, No thoracic spinal tenderness and No lumbar spinal tenderness Extrem General: Yes normal to inspection, No edema and No calf tenderness Skin General: warm and dry. Normal skin color. Normal skin turgor Neuro General: patient oriented x3, gait normal and no focal neuro deficit Cranial nerves: Yes Equal, round and reactive pupils present Cognition (Neuro): normal cognition Gait exam (Neuro): Normal gait present Sensory Exam: No Sensory deficit (Neuro) Psych Appearance: grossly normal Affect: normal affect Attitude: cooperative Thought process: Normal thought process present Assessment and Plan Assessment & Plan (1) : Code(s): Z34.90 - Encounter for supervision of normal , unspecified, unspecified trimester Plan: Reports multiple positive home urine hCG tests Last day of her last menstrual cycle was 03/17/2024. No GI or symptoms Blood hCG ordered Referred to [facility] OBGYN Follow-up as needed Verbalized understanding and agreed with the plan (2) Headache: Code(s): R51.9 - Headache, unspecified Plan: Headache x3 days No focal neuro deficits May take Tylenol as needed. Do not exceed 4000 mg daily Adequate hydration encouraged Follow-up with worsening or new symptoms Verbalized understanding and agreed with the plan Orders: Orders HCG Quantitative Today Z34. 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 - Encounter for supervision of normal , unspecified, unspecified trimester Coding Level of Care Code Est Pt Level 3 (21267) Diagnoses Z34. Headache R51.9
[2024-02-14 11:06] VITALS: BP 108/80; PULSE 91; RESP 16; TEMP 36.6; O2SAT 98; BMI 27.8
== END 2024-02-14 11:34 | disposition home or self-care (01) ==
PROVIDERS: PCP Nurse Practitioner Family; Visit Provider Nurse Practitioner Family
DX: Z34.90 Encounter for supervision of normal pregnancy, unspecified, unspecified trimester (principal); R51.9 Headache, unspecified

== ENCOUNTER → 2024-02-14 10:49 | Outpatient (BNVA) | payer BC, SELFPAY | PROVIDERS: PCP Nurse Practitioner Family; Visit Provider Nurse Practitioner Family | DX: O26.899 Other specified pregnancy related conditions, unspecified trimester (principal); R51.9 Headache, unspecified; Z3A.00 Weeks of gestation of pregnancy not specified ==

== ENCOUNTER 2024-02-14 11:44 | Outpatient (REF) | payer BC, SELFPAY ==
[2024-02-14 15:58] LABS: HCG Quantitative 306 mIU/mL
== END 2024-02-14 11:45 | disposition home or self-care (01) ==
LOC: HO.WFDLDS 11:44
PROVIDERS: Visit Provider Nurse Practitioner Family
DX: Z34.90 Encounter for supervision of normal pregnancy, unspecified, unspecified trimester (principal)
CPT/HCPCS: 36415; 84702

== ENCOUNTER → 2024-02-16 11:00 | Outpatient (BNVA) | payer BC, SELFPAY | PROVIDERS: PCP Nurse Practitioner Family; Visit Provider Advanced Practice Midwife ==

== ENCOUNTER 2024-03-22 00:35 | Emergency (ER) | payer BC, SELFPAY ==
--- NOTE | ~2024-03-22 | US_ITS ---
EXAMINATION: US OBSTETRICAL ULTRASOUND CLINICAL INFORMATION: Left pelvic pain. COMPARISON: Abdominal ultrasound 07/27/2023. CT abdomen and pelvis 05/03/2017. TECHNIQUE: Transabdominal pelvic ultrasonography. Meyer scale, color, spectral and M-mode interrogation. FINDINGS: Uterus is present in a retroflexed orientation. A single fundal intrauterine gestation is noted. M-mode interrogation demonstrates cardiac activity at 174 bpm. No subchorionic fluid collections identified. The gestational sac, yolk sac and pole are visualized. [place]-rump length measures 2.26 cm for an AUA of 9 week 0 day. The right ovary measures 2.97 x 1.17 x 1.7 cm is normal in appearance demonstrating low resistive venous waveforms on spectral Doppler interrogation. Grossly normal color Doppler interrogation of the right ovary. The left ovary is not visualized. No free peritoneal fluid collections identified. US/US OB <= 14 weeks fetus IMPRESSION: *Single live intrauterine gestation, AUA 9 weeks 0 day. *Normal right ovary. *The left ovary is not identified. Electronically signed by: Ovidio Napoles MD 03/22/2024 03:00 AM EDT
[2024-03-22 00:36] VITALS: BP 125/85; PULSE 89; RESP 18; TEMP 36.2; O2SAT 99; BMI 27.3
[2024-03-22 00:50] LABS: MANUAL DIFF FLAG NO
[2024-03-22 00:53] LABS: Basophils Percent Auto 0.3 % (0-2); Eosinophils Absolute Auto 0.1 X10*3/uL (0.0-0.4); Eosinophils Percent Auto 0.9 % (0-4); Hematocrit 34.6 % (37.0-47.0); Hemoglobin 12.1 g/dl (12.0-16.0); Imm Gran Abs Auto 0.01 X10*3/uL (0.00-0.03); Imm Gran Pct Auto 0.1 % (0.0-0.4); Lymphocytes Absolute Auto 3.1 X10*3/uL (1.2-4.9); Lymphocytes Percent Auto 33.2 % (20-40); Mean Corpuscular Hemoglobin 29.7 pg (27.0-33.0); Mean Corpuscular Volume 84.8 fL (80.0-98.0); Mean Platelet Volume 9.3 fL (9.4-12.3); Monocytes Absolute Auto 0.6 X10*3/uL (0.1-1.2); Monocytes Percent Auto 6.4 % (2-11); Neutrophils Absolute Auto 5.4 x10*3/uL (2.0-8.3); Neutrophils Percent Auto 59.1 % (45-73); Platelet Count 294 X10*3/uL (160-400); Red Blood Count 4.08 X10*6/uL (4.20-5.50); White Blood Count 9.2 X10*3/uL (4.8-10.8)
--- NOTE | 2024-03-22 01:05 | ED.GENADULT ---
HPI - General Adult General Chief complaint: Abdominal Pain Stated complaint: preg, n/v Time Seen by Provider: 03/22/24 00:53 Source: patient, RN notes reviewed and old records reviewed Mode of arrival: ambulatory Limitations: no limitations History of Present Illness ED Provider: Cadence ALONSO narrative: 23-year-old female presents for evaluation of lower abdominal pain. Patient reports that she was about 9 weeks . She is . She has not yet met with her OB doctor but is due to be seen at [facility] in 3 weeks She has had nausea and vomiting for the last few weeks during her . She reports she has had generalized abdominal pain starting today that is mostly localized to the left lower abdomen She has not had any vaginal bleeding or discharge She reports associated weakness Denies any fevers, chills, cough, sore throat Related Data Previous Rx's ?Medication ?Instructions ?Recorded doxylamine 10 mg-pyridoxine (vit 1 tab PO BID PRN nausea and 03/22/24 B6) 10 mg tablet,delayed release vomiting #30 tabs (Diclegis) nitrofurantoin 100 mg PO Q12H 7 days #14 caps 03/22/24 monohydrate/macrocrystals 100 mg capsule (Macrobid) Allergies Allergy/AdvReac Type Severity Reaction Status Date / Time No Known Allergies Allergy Verified 03/22/24 00:38 [No Known Allergies*] Review of Systems Constitutional: Constitutional: Denies body ache(s), Denies chills, Denies fever(s) and Reports weakness ENT: Denies vertigo and Denies dizziness Cardiovascular: Cardiovascular: Denies chest pain and Denies dyspnea Respiratory: Respiratory: Denies cough and Denies dyspnea Gastrointestinal: Gastrointestinal: Reports abdominal pain, Denies hematochezia, Reports nausea and Reports vomiting Genitourinary: Genitourinary: Denies difficulty voiding, Reports pelvic pain and Denies vaginal discharge Musculoskeletal: Musculoskeletal: Denies back pain Integumentary/Breasts: Skin/Breast: Denies rash Neurologic: Denies vertigo, Denies dizziness and Reports weakness PMFSH Past Medical History Medical History Elevated liver enzymes Anxiety and depression Surgical History H/O right wrist surgery Social History Social History Housing: House Patient Tobacco Use Status: Never used Tobacco Smoked in Last 30 Days: No e-Cigarette/Vaping Use: Never Used Use of substances other than those prescribed or required for medical reasons: No Advance Directives: No Do you have a plan to hurt others: No Plan Patient : Yes service: No 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 identity: Female Cognitive needs: No Hearing needs: Yes Vision needs: Yes (contacts) Physical Exam ED Vital Signs: Vital Signs - 24 hr 03/22/24 00:36 Temperature 97.2 F Pulse Rate 89 Respiratory Rate 18 Blood Pressure 125/85 Pulse Oximetry 99 Oxygen Delivery Method Room Air BMI result Body Mass Index 27.3 Const General: healthy appearing, comfortable, no acute distress, alert and awake Nutritional Appearance: well nourished Orientation/consciousness: patient oriented x3 HENMT Head: Yes normocephalic and Yes atraumatic Eyes Eyelids: Yes eyelids normal Conjunctivae: conjunctivae normal Sclerae: sclerae normal Corneas: corneas normal Pupils: Equal, round and reactive pupils present EOM: EOMs intact bilaterally Neck Neck: Yes full ROM Resp Effort & Inspection: normal respiratory effort, able to speak in complete sentences and not labored GI Inspection: No distended Palpation (GI): Soft to palpation, not firm, Tenderness to palpation present (GI) in the LLQ and suprapubicly, no guarding and not rigid Auscultation: normoactive bowel sounds Skin General skin exam: elasticity normal Neuro General: patient oriented x3 Cranial nerves: Yes Equal, round and reactive pupils present and Yes Bilaterally intact EOM present Cognition (Neuro): normal cognition Extrem Other: Moving all extremities well without any obvious deformities Medications Administered Discontinued Medications Generic Name Dose Route Start Last Admin Trade Name Freq PRN Reason Stop Dose Admin Sodium Chloride 1,000 mls @ 999 mls/hr 03/22/24 01:00 03/22/24 01:07 Ns IV 03/22/24 02:00 999 mls/hr .Q1H1M FARHAD Administration Ondansetron HCl 4 mg 03/22/24 00:57 03/22/24 01:07 Ondansetron Hcl 4 Mg/2 Ml Vial IVPUSH 03/22/24 00:58 4 mg ONCE ONE Administration Medical Decision Making Medical Decision Making [facility] Narrative: 23-year-old female presents for evaluation of lower abdominal/pelvic pain. She reports she was about 9 weeks . Plan for basic labs including hCG, she has no vaginal bleeding or discharge, I have a low suspicion for threatened or missed but we will obtain ABO/Rh typing. We will get an ultrasound of the fetus to rule out ectopic. The patient is quite well appearing, vital signs are within normal limits. We will treat her nausea without any weakness with IV fluids and Zofran. Further workup as indicated -I received sign-out from my colleague VAN Vila -no significant abnormality in the hematology or chemistry, hCG 70,376 -ultrasound shows a single live intrauterine -urinalysis positive for UTI. Patient was given Macrobid in the ED -patient will follow-up with her primary care physician and OBGYN Differential Diagnosis Differential Diagnoses: The differential diagnosis associated with the presentation includes Hyperemesis gravidarum Ectopic Gastroenteritis Lab Data [facility] Lab Attestation statement: I reviewed the patient's lab results. The patient has no leukocytosis or significant anemia. Normal platelet count. No significant electrolyte abnormalities. Sodium and potassium within normal limits. Renal function is also within normal limits, no clinical evidence PAWAN or dehydration. 03/22/24 00:47 03/22/24 00:47 Labs: Lab Results 03/22/24 03/22/24 Range/Units 00:47 01:13 WBC 9.2 (4.8-10.8) X10*3/uL RBC 4.08 L (4.20-5.50) X10*6/uL Hgb 12.1 (12.0-16.0) g/dl Hct 34.6 L (37.0-47.0) % MCV 84.8 (80.0-98.0) fL MCH 29.7 (27.0-33.0) pg MCHC 35.0 (31.0-35.0) g/dl RDW 12.0 (11.0-16.0) % Plt Count 294 (160-400) X10*3/uL MPV 9.3 L (9.4-12.3) fL Immature Gran % (Auto) 0.1 (0.0-0.4) % Neut % (Auto) 59.1 (45-73) % Lymph % (Auto) 33.2 (20-40) % [place] % (Auto) 6.4 (2-11) % Eos % (Auto) 0.9 (0-4) % Baso % (Auto) 0.3 (0-2) % Lymph # (Auto) 3.1 (1.2-4.9) X10*3/uL [place] # (Auto) 0.6 (0.1-1.2) X10*3/uL Eos # (Auto) 0.1 (0.0-0.4) X10*3/uL Baso # (Auto) 0.0 (0.0-0.2) X10*3/uL Abs Immat Gran (auto) 0.01 (0.00-0.03) X10*3/uL Absolute Neuts (auto) 5.4 (2.0-8.3) x10*3/uL Absolute Nucleated RBC 0.000 (0.0-0.012) X10*3/uL Nucleated RBC % (auto) 0.0 (0.0-0.2) /100WBC Sodium 137 (135-145) mmol/L Potassium 3.5 (3.3-5.1) mmol/L Chloride 108 (96-108) mmol/L Carbon Dioxide 21 L (22-29) mmol/L Anion Gap 12 (12-20) BUN 7 L (9-16) mg/dL Creatinine 0.75 (0.5-1.4) mg/dL Estim Creat Clear Calc 119.9 Estimated GFR > 60 Random Glucose 92 (60-115) mg/dL Calcium 9.6 (8.4-10.2) mg/dL Total Bilirubin 0.4 (0.0-1.0) mg/dL AST 25 (5-31) U/L ALT 36 H (0-31) U/L Alkaline Phosphatase 56 (39-117) U/L Total Protein 7.0 (6.5-8.0) g/dL Albumin 3.8 (3.5-5.0) g/dL Lipase 33 (8-78) U/L Beta HCG, Quant 18338 mIU/mL Urine Color Yellow Urine Appearance Clear Urine pH 6.0 (5.0-9.0) Ur Specific [place] 1.025 (1.005-1.025) Urine Protein Trace (Neg-Trace) mg/dL Urine Glucose (UA) Negative (Negative) mg/dL Urine Ketones Trace (Negative) mg/dL Urine Blood Negative (Negative) Urine Nitrite Negative (Negative) Ur Leukocyte Esterase Small (1+) H (Negative) Urine RBC 0-2 (0-2) /HPF Urine WBC 21-50 H (0-5) /HPF Ur Squamous Epith Cells 0-2 (0-2) /HPF Urine Bacteria Trace (None Seen) Hyaline Casts 0-2 (0-2) /LPF Blood Type A Positive Radiology Impression Discussion of test interpretation with radiology: I have reviewed the radiologist's reading. Radiologist Impression: Uterus is present in a retroflexed orientation. A single fundal intrauterine gestation is noted. M-mode interrogation demonstrates cardiac activity at 174 bpm. No subchorionic fluid collections identified. The gestational sac, yolk sac and pole are visualized. [place]-rump length measures 2.26 cm for an AUA of 9 week 0 day. The right ovary measures 2.97 x 1.17 x 1.7 cm is normal in appearance demonstrating low resistive venous waveforms on spectral Doppler interrogation. Grossly normal color Doppler interrogation of the right ovary. The left ovary is not visualized. No free peritoneal fluid collections identified. US/US OB <= 14 weeks fetus IMPRESSION: *Single live intrauterine gestation, AUA 9 weeks 0 day. *Normal right ovary. *The left ovary is not identified. Discharge Plan Discharge Clinical Impression: Nausea and vomiting during , UTI (urinary tract infection) Patient Disposition: Home, Self-Care Instructions: Nausea and Vomiting in (ED) Additional Instructions: Your work up in the ER today is reassuring This includes your blood work, urinalysis and ultrasound You may use the diclegis as prescriebd for nausea and vomiting associated with . This medication is safe for the baby. Use Tylenol as needed for pain Follow-up with your OBGYN as planned Return for new or worsening symptoms Prescriptions: New doxylamine-pyridoxine (vit B6) [Diclegis] 10-10 mg tablet,delayed release (DR/EC) 1 tab PO BID PRN (Reason: nausea and vomiting) Qty: 30 0RF nitrofurantoin monohyd/m-cryst [Macrobid] 100 mg capsule 100 mg PO Q12H 7 Days Qty: 14 0RF Rx Instructions: must administer with a meal/food Print Language: Estonian
[2024-03-22] MEDS: ondansetron HCL 4 MG/2 ML VIAL IVPUSH (01:07)
[2024-03-22] MEDS: 0.9 % Sodium Chloride 1,000 ML 999 ML IV (01:07)
[2024-03-22 01:14] LABS: Alanine Aminotransferase 36 U/L (0-31); Albumin Level 3.8 g/dL (3.5-5.0); Alkaline Phosphatase 56 U/L (39-117); Anion Gap 12 (12-20); Aspartate Amino Transferase 25 U/L (5-31); Bilirubin Total 0.4 mg/dL (0.0-1.0); Blood Urea Nitrogen 7 mg/dL (9-16); Calcium 9.6 mg/dL (8.4-10.2); Carbon Dioxide 21 mmol/L (22-29); Chloride 108 mmol/L (96-108); Creatinine Clr Calc Pharmacy 119.9; Estimated Glomerular Filt Rate > 60; Glucose Random 92 mg/dL (60-115); Potassium 3.5 mmol/L (3.3-5.1); Sodium 137 mmol/L (135-145)
--- NOTE | 2024-03-22 01:17 | PC.NURSE ---
Pt aox4 presents with abd pain, nausea, and burning with urination. VSS. 22G L hand. Medicated per JUL. Pt tolerated well. Pt is 9 wks gestation with an GOLDY September 2024. Unsure of last menses. Pending U/S and aware of plan of care. Monitoring is ongoing.
[2024-03-22 01:19] LABS: Appearance Urine Clear; Color Urine Yellow; Glucose Urine UA Negative (Negative); Leukocyte Esterase Urine Small (1+) (Negative); Nitrite Urine Negative (Negative); Specific Gravity - Urine 1.025 (1.005-1.025); UMIC TRIGGER UACC YES; Urine Blood Negative (Negative); Urine Ketones Trace mg/dL (Negative); Urine Protein Trace mg/dL (Neg-Trace)
[2024-03-22 01:28] LABS: Bacteria Urine Trace (None Seen); Hyaline Casts Urine 0-2 /LPF (0-2); RBC Urine 0-2 /HPF (0-2); Squamous Epithelial Cell Urine 0-2 /HPF (0-2); UACC Culture Trigger YES; WBC Urine 21-50 /HPF (0-5)
[2024-03-22 01:31] LABS: Lipase 33 U/L (8-78)
[2024-03-22 01:37] LABS: HCG Quantitative 70376 mIU/mL
[2024-03-22 03:12] VITALS: BP 100/57; PULSE 77; RESP 14; TEMP 36.7; O2SAT 99
[2024-03-22 03:13] VITALS: BP 100/57; PULSE 77; RESP 14; TEMP 36.7; O2SAT 99
[2024-03-22] MEDS: Nitrofurantoin Monohyd/M-Cryst 100 MG CAPSULE PO (03:14)
== END 2024-03-22 03:17 | disposition home or self-care (01) ==
PROVIDERS: Physician Assistant; Emergency Provider Emergency Medicine; PCP Nurse Practitioner Family
DX: O21.9 Vomiting of pregnancy, unspecified (principal); N39.0 Urinary tract infection, site not specified; Z3A.09 9 weeks gestation of pregnancy; R10.30 Lower abdominal pain, unspecified
CPT/HCPCS: 36415; 76801; 80053; 81001; 83690; 84702; 85025; 86900; 86901; 87086; 96361; 96374; 99284; J2405

== ENCOUNTER 2024-04-01 20:43 | Emergency (ER) | payer BC, SELFPAY ==
[2024-04-01 21:12] VITALS: BP 130/68; PULSE 84; RESP 14; TEMP 36.3; O2SAT 99; BMI 27.3
[2024-04-01 21:27] LABS: MANUAL DIFF FLAG NO
[2024-04-01 21:28] LABS: Basophils Percent Auto 0.2 % (0-2); Eosinophils Percent Auto 0.3 % (0-4); Hematocrit 38.6 % (37.0-47.0); Hemoglobin 13.7 g/dl (12.0-16.0); Imm Gran Abs Auto 0.03 X10*3/uL (0.00-0.03); Imm Gran Pct Auto 0.3 % (0.0-0.4); Lymphocytes Absolute Auto 2.1 X10*3/uL (1.2-4.9); Lymphocytes Percent Auto 20.9 % (20-40); Mean Corpuscular HGB Conc 35.5 g/dl (31.0-35.0); Mean Corpuscular Hemoglobin 29.7 pg (27.0-33.0); Mean Corpuscular Volume 83.5 fL (80.0-98.0); Mean Platelet Volume 9.2 fL (9.4-12.3); Monocytes Absolute Auto 0.4 X10*3/uL (0.1-1.2); Monocytes Percent Auto 4.4 % (2-11); Neutrophils Absolute Auto 7.3 x10*3/uL (2.0-8.3); Neutrophils Percent Auto 73.9 % (45-73); Platelet Count 303 X10*3/uL (160-400); Red Blood Count 4.62 X10*6/uL (4.20-5.50); Red Cell Distribution Width 12.2 % (11.0-16.0); White Blood Count 9.9 X10*3/uL (4.8-10.8)
[2024-04-01 21:54] LABS: Alanine Aminotransferase 38 U/L (0-31); Albumin Level 4.1 g/dL (3.5-5.0); Alkaline Phosphatase 61 U/L (39-117); Anion Gap 12 (12-20); Aspartate Amino Transferase 28 U/L (5-31); Bilirubin Total 0.4 mg/dL (0.0-1.0); Blood Urea Nitrogen 7 mg/dL (9-16); Calcium 9.8 mg/dL (8.4-10.2); Carbon Dioxide 22 mmol/L (22-29); Chloride 107 mmol/L (96-108); Creatinine Clr Calc Pharmacy 124.6; Estimated Glomerular Filt Rate > 60; Glucose Random 87 mg/dL (60-115); Potassium 3.9 mmol/L (3.3-5.1); Sodium 137 mmol/L (135-145); Total Protein 7.8 g/dL (6.5-8.0)
[2024-04-01 22:13] LABS: HCG Quantitative 61426 mIU/mL
[2024-04-01 22:14] VITALS: BP 111/70; PULSE 73; RESP 20; TEMP 36.6; O2SAT 99
--- NOTE | 2024-04-01 23:16 | ED_ITS ---
HPI - Nausea/Vomiting/Diarrhea General Chief complaint: Nausea/Vomiting/Diarrhea Stated complaint: 11 weeks preg/nausea & vomiting Time Seen by Provider: 04/01/24 22:44 Source: patient Mode of arrival: ambulatory Limitations: no limitations History of Present Illness ED Provider: cesar ALONSO Narrative: Patient is 11 weeks usually has nausea since earlier today been vomiting vomited 3 times had 1 loose bowel decreased oral intake but urinating normal no fever no chills no other family member sick no vaginal bleed Related Data Previous Rx's ?Medication ?Instructions ?Recorded doxylamine 10 mg-pyridoxine (vit 1 tab PO BID PRN nausea and 03/22/24 B6) 10 mg tablet,delayed release vomiting #30 tabs (Diclegis) nitrofurantoin 100 mg PO Q12H 7 days #14 caps 03/22/24 monohydrate/macrocrystals 100 mg capsule (Macrobid) ondansetron 4 mg disintegrating 4 mg PO Q6-8H PRN nausea and 04/02/24 tablet vomiting #20 tabs Allergies Allergy/AdvReac Type Severity Reaction Status Date / Time No Known Allergies Allergy Verified 04/01/24 21:15 [No Known Allergies*] Review of Systems 2 Review of Systems: Yes all other systems are reviewed and are negative PMFSH Past Medical History Medical History Elevated liver enzymes Anxiety and depression Surgical History H/O right wrist surgery Social History Social History Housing: House Patient Tobacco Use Status: Never used Tobacco e-Cigarette/Vaping Use: Never Used Advance Directives: No Advance Directives Information Provided: Yes Do you have a plan to hurt others: No Plan service: No 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 Oriented X3. No acute distress. Eyes: No pallor or icterus ENT: Pharynx normal. Oral Mucosa moist Neck: Normal inspection. Neck supple. CVS: Normal heart rate and rhythm. Pulses normal. Respiratory: No respiratory distress. Equal air entry bilateral, no wheezing/rales/rhonchi Abdomen: Soft and nontender. Bowel sounds are present, gravid uterus, no CVA tenderness Skin: Skin warm and dry. Normal skin color. Normal skin turgor. Extremities: No lower extremity edema. No calf tenderness Neuro: Oriented X 3. Medications Administered Discontinued Medications Generic Name Dose Route Start Last Admin Trade Name Freq PRN Reason Stop Dose Admin Ondansetron HCl 4 mg 04/01/24 23:02 04/01/24 23:53 Ondansetron Odt 4 Mg Tab.Rapdis TRANSLINGU 04/01/24 23:03 4 mg ONCE ONE Administration Medical Decision Making Medical Decision Making [facility] Narrative: Patient has acute vomiting without any signs of dehydration responded to Zofran sublingual 11 weeks discharge patient home on Zofran Lab Data [facility] Lab Attestation statement: I reviewed the patient's lab results. 04/01/24 21:24 04/01/24 21:24 Labs: Lab Results 04/01/24 04/01/24 Range/Units 21:24 23:59 WBC 9.9 (4.8-10.8) X10*3/uL RBC 4.62 (4.20-5.50) X10*6/uL Hgb 13.7 (12.0-16.0) g/dl Hct 38.6 (37.0-47.0) % MCV 83.5 (80.0-98.0) fL MCH 29.7 (27.0-33.0) pg MCHC 35.5 H (31.0-35.0) g/dl RDW 12.2 (11.0-16.0) % Plt Count 303 (160-400) X10*3/uL MPV 9.2 L (9.4-12.3) fL Immature Gran % (Auto) 0.3 (0.0-0.4) % Neut % (Auto) 73.9 H (45-73) % Lymph % (Auto) 20.9 (20-40) % Coleman % (Auto) 4.4 (2-11) % Eos % (Auto) 0.3 (0-4) % Baso % (Auto) 0.2 (0-2) % Lymph # (Auto) 2.1 (1.2-4.9) X10*3/uL Coleman # (Auto) 0.4 (0.1-1.2) X10*3/uL Eos # (Auto) 0.0 (0.0-0.4) X10*3/uL Baso # (Auto) 0.0 (0.0-0.2) X10*3/uL Abs Immat Gran (auto) 0.03 (0.00-0.03) X10*3/uL Absolute Neuts (auto) 7.3 (2.0-8.3) x10*3/uL Absolute Nucleated RBC 0.000 (0.0-0.012) X10*3/uL Nucleated RBC % (auto) 0.0 (0.0-0.2) /100WBC Sodium 137 (135-145) mmol/L Potassium 3.9 (3.3-5.1) mmol/L Chloride 107 (96-108) mmol/L Carbon Dioxide 22 (22-29) mmol/L Anion Gap 12 (12-20) BUN 7 L (9-16) mg/dL Creatinine 0.69 (0.5-1.4) mg/dL Estim Creat Clear Calc 124.6 Estimated GFR > 60 Random Glucose 87 (60-115) mg/dL Calcium 9.8 (8.4-10.2) mg/dL Total Bilirubin 0.4 (0.0-1.0) mg/dL AST 28 (5-31) U/L ALT 38 H (0-31) U/L Alkaline Phosphatase 61 (39-117) U/L Total Protein 7.8 (6.5-8.0) g/dL Albumin 4.1 (3.5-5.0) g/dL Beta HCG, Quant 46368 mIU/mL Urine Color Yellow Urine Appearance Clear Urine pH 6.0 (5.0-9.0) Ur Specific Ary 1.025 (1.005-1.025) Urine Protein Trace (Neg-Trace) mg/dL Urine Glucose (UA) Negative (Negative) mg/dL Urine Ketones 80 (Negative) mg/dL Urine Blood Negative (Negative) Urine Nitrite Negative (Negative) Ur Leukocyte Esterase Trace H (Negative) Urine RBC 0-2 (0-2) /HPF Urine WBC 0-5 (0-5) /HPF Ur Squamous Epith Cells 0-2 (0-2) /HPF Urine Bacteria Trace (None Seen) Hyaline Casts 0-2 (0-2) /LPF Discharge Plan Discharge Clinical Impression: Vomiting Patient Disposition: Home, Self-Care Instructions: Acute Nausea and Vomiting (ED) Additional Instructions: Drink plenty of fluids Zofran for severe nausea/vomiting Follow with your PCP as needed Prescriptions: New ondansetron 4 mg tablet,disintegrating 4 mg PO Q6-8H PRN (Reason: nausea and vomiting) Qty: 20 0RF No Action doxylamine-pyridoxine (vit B6) [Diclegis] 10-10 mg tablet,delayed release (DR/EC) 1 tab PO BID PRN (Reason: nausea and vomiting) Qty: 30 0RF nitrofurantoin monohyd/m-cryst [Macrobid] 100 mg capsule 100 mg PO Q12H 7 Days Qty: 14 0RF Rx Instructions: must administer with a meal/food Interventions: ED Discharge Assessment Last Done: 04/02/24 01:57 Discharge Date/Time: 04/02/24 01:58 Print Language: Belizean
[2024-04-01] MEDS: Ondansetron ODT 4 MG TAB.RAPDIS TRANSLINGU (23:53)
[2024-04-02 00:01] VITALS: BP 109/61; PULSE 75; RESP 16; TEMP 36.8; O2SAT 97
[2024-04-02 00:11] LABS: Appearance Urine Clear; Color Urine Yellow; Glucose Urine UA Negative (Negative); Leukocyte Esterase Urine Trace (Negative); Nitrite Urine Negative (Negative); Specific Gravity - Urine 1.025 (1.005-1.025); UMIC TRIGGER UACC YES; Urine Blood Negative (Negative); Urine Ketones 80 mg/dL (Negative); Urine Protein Trace mg/dL (Neg-Trace)
[2024-04-02 00:17] LABS: Bacteria Urine Trace (None Seen); Hyaline Casts Urine 0-2 /LPF (0-2); RBC Urine 0-2 /HPF (0-2); Squamous Epithelial Cell Urine 0-2 /HPF (0-2); WBC Urine 0-5 /HPF (0-5)
[2024-04-02 01:57] VITALS: BP 102/63; PULSE 78; RESP 15; TEMP 36.7; O2SAT 98
== END 2024-04-02 01:58 | disposition home or self-care (01) ==
PROVIDERS: Emergency Provider Internal Medicine; PCP Nurse Practitioner Family
DX: O21.9 Vomiting of pregnancy, unspecified (principal); Z3A.11 11 weeks gestation of pregnancy; Z79.899 Other long term (current) drug therapy
CPT/HCPCS: 36415; 80053; 81001; 84702; 85025; 99283

== ENCOUNTER 2024-04-29 22:05 | Emergency (ER) | payer BC, SELFPAY ==
[2024-04-29 22:31] VITALS: BP 118/68; PULSE 86; RESP 18; TEMP 36; O2SAT 100; BMI 26.2
[2024-04-29 23:02] LABS: MANUAL DIFF FLAG NO
[2024-04-29 23:03] LABS: Basophils Percent Auto 0.3 % (0-2); Eosinophils Percent Auto 0.4 % (0-4); Hematocrit 34.7 % (37.0-47.0); Hemoglobin 12.6 g/dl (12.0-16.0); Imm Gran Abs Auto 0.02 X10*3/uL (0.00-0.03); Imm Gran Pct Auto 0.2 % (0.0-0.4); Lymphocytes Absolute Auto 2.2 X10*3/uL (1.2-4.9); Lymphocytes Percent Auto 22.7 % (20-40); Mean Corpuscular HGB Conc 36.3 g/dl (31.0-35.0); Mean Corpuscular Hemoglobin 29.9 pg (27.0-33.0); Mean Corpuscular Volume 82.4 fL (80.0-98.0); Mean Platelet Volume 9.4 fL (9.4-12.3); Monocytes Absolute Auto 0.4 X10*3/uL (0.1-1.2); Monocytes Percent Auto 4.2 % (2-11); Neutrophils Absolute Auto 6.9 x10*3/uL (2.0-8.3); Neutrophils Percent Auto 72.2 % (45-73); Platelet Count 273 X10*3/uL (160-400); Red Blood Count 4.21 X10*6/uL (4.20-5.50); Red Cell Distribution Width 12.1 % (11.0-16.0); White Blood Count 9.6 X10*3/uL (4.8-10.8)
[2024-04-29 23:19] LABS: COVID-19 Test Negative (Negative); IDNOW Serial# 08D9AD1C
[2024-04-29 23:21] LABS: IDNOW Serial# 152EDE1D; Influenza A Negative (Negative); Influenza B2 Negative (Negative)
[2024-04-29 23:22] LABS: Alanine Aminotransferase 31 U/L (0-31); Alkaline Phosphatase 61 U/L (39-117); Anion Gap 12 (12-20); Aspartate Amino Transferase 23 U/L (5-31); Bilirubin Total 0.5 mg/dL (0.0-1.0); Blood Urea Nitrogen 6 mg/dL (9-16); Calcium 9.7 mg/dL (8.4-10.2); Carbon Dioxide 22 mmol/L (22-29); Chloride 106 mmol/L (96-108); Estimated Glomerular Filt Rate > 60; Glucose Random 76 mg/dL (60-115); Lipase 25 U/L (8-78); Potassium 3.4 mmol/L (3.3-5.1); Sodium 137 mmol/L (135-145); Total Protein 7.5 g/dL (6.5-8.0)
[2024-04-29 23:44] LABS: HCG Quantitative 28965 mIU/mL
--- NOTE | 2024-04-30 00:26 | ED_ITS ---
HPI - Nausea/Vomiting/Diarrhea General Chief complaint: Nausea/Vomiting/Diarrhea Stated complaint: nausea, vomiting, abd pain 15 wks Time Seen by Provider: 04/29/24 23:55 Source: patient Mode of arrival: ambulatory Limitations: no limitations History of Present Illness ED Provider: HPI Narrative: Patient is 15 weeks with nausea vomiting for last 2 days able to take any solids or liquids down no fever no chills no urinary symptoms no abdominal pain no vaginal discharge patient was with same symptoms for 1st 10- 12 weeks got better for few weeks and then started again took Zofran earlier today without much response Related Data Previous Rx's ?Medication ?Instructions ?Recorded doxylamine 10 mg-pyridoxine (vit 1 tab PO BID PRN nausea and 03/22/24 B6) 10 mg tablet,delayed release vomiting #30 tabs (Diclegis) nitrofurantoin 100 mg PO Q12H 7 days #14 caps 03/22/24 monohydrate/macrocrystals 100 mg capsule (Macrobid) ondansetron 4 mg disintegrating 4 mg PO Q6-8H PRN nausea and 04/02/24 tablet vomiting #20 tabs ondansetron 4 mg disintegrating 4 mg PO Q6-8H PRN nausea and 04/30/24 tablet vomiting #20 tabs Allergies Allergy/AdvReac Type Severity Reaction Status Date / Time No Known Allergies Allergy Verified 04/29/24 22:33 [No Known Allergies*] Review of Systems 2 Review of Systems: Yes all other systems are reviewed and are negative PMFSH Past Medical History Medical History Elevated liver enzymes Anxiety and depression Surgical History H/O right wrist surgery Social History Social History Housing: House Patient Tobacco Use Status: Never used Tobacco Smoked in Last 30 Days: No e-Cigarette/Vaping Use: Never Used Use of substances other than those prescribed or required for medical reasons: No Advance Directives: No Do you have a plan to hurt others: No Plan Patient : Yes service: No 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 Oriented X3. No acute distress. Eyes: No pallor or icterus ENT: Pharynx normal. Oral Mucosa moist Neck: Normal inspection. Neck supple. CVS: Normal heart rate and rhythm. Pulses normal. Respiratory: No respiratory distress. Equal air entry bilateral, no wheezing/rales/rhonchi Abdomen: Soft and nontender. Bowel sounds are present, no mass palpable, no CVA tenderness Skin: Skin warm and dry. Normal skin color. Normal skin turgor. Extremities: No lower extremity edema. No calf tenderness Neuro: Oriented X 3. No motor deficit. No sensory deficit.No cerebellar signs , cranial nerves II-XII intact Medications Administered Discontinued Medications Generic Name Dose Route Start Last Admin Trade Name Freq PRN Reason Stop Dose Admin Sodium Chloride 1,000 mls @ 999 mls/hr 04/30/24 00:31 04/30/24 03:23 Ns IV 04/30/24 01:31 Infused .Q1H1M ONE Infusion Medical Decision Making Medical Decision Making [facility] Narrative: Patient with vomiting during received IV fluids taking p.o. fluids before discharge labs are stable no signs of infection Lab Data [facility] Lab Attestation statement: I reviewed the patient's lab results. 04/29/24 22:58 04/29/24 22:58 Labs: Lab Results 04/29/24 04/30/24 Range/Units 22:58 01:30 WBC 9.6 (4.8-10.8) X10*3/uL RBC 4.21 (4.20-5.50) X10*6/uL Hgb 12.6 (12.0-16.0) g/dl Hct 34.7 L (37.0-47.0) % MCV 82.4 (80.0-98.0) fL MCH 29.9 (27.0-33.0) pg MCHC 36.3 H (31.0-35.0) g/dl RDW 12.1 (11.0-16.0) % Plt Count 273 (160-400) X10*3/uL MPV 9.4 (9.4-12.3) fL Immature Gran % (Auto) 0.2 (0.0-0.4) % Neut % (Auto) 72.2 (45-73) % Lymph % (Auto) 22.7 (20-40) % Mcminn % (Auto) 4.2 (2-11) % Eos % (Auto) 0.4 (0-4) % Baso % (Auto) 0.3 (0-2) % Lymph # (Auto) 2.2 (1.2-4.9) X10*3/uL Mcminn # (Auto) 0.4 (0.1-1.2) X10*3/uL Eos # (Auto) 0.0 (0.0-0.4) X10*3/uL Baso # (Auto) 0.0 (0.0-0.2) X10*3/uL Abs Immat Gran (auto) 0.02 (0.00-0.03) X10*3/uL Absolute Neuts (auto) 6.9 (2.0-8.3) x10*3/uL Absolute Nucleated RBC 0.000 (0.0-0.012) X10*3/uL Nucleated RBC % (auto) 0.0 (0.0-0.2) /100WBC Sodium 137 (135-145) mmol/L Potassium 3.4 (3.3-5.1) mmol/L Chloride 106 (96-108) mmol/L Carbon Dioxide 22 (22-29) mmol/L Anion Gap 12 (12-20) BUN 6 L (9-16) mg/dL Creatinine 0.64 (0.5-1.4) mg/dL Estim Creat Clear Calc 132.0 Estimated GFR > 60 Random Glucose 76 (60-115) mg/dL Calcium 9.7 (8.4-10.2) mg/dL Total Bilirubin 0.5 (0.0-1.0) mg/dL AST 23 (5-31) U/L ALT 31 (0-31) U/L Alkaline Phosphatase 61 (39-117) U/L Total Protein 7.5 (6.5-8.0) g/dL Albumin 4.0 (3.5-5.0) g/dL Lipase 25 (8-78) U/L Beta HCG, Quant 11840 mIU/mL Urine Color Dark Yellow Urine Appearance Clear Urine pH 6.5 (5.0-9.0) Ur Specific [place] >= 1.030 H (1.005-1.025) Urine Protein Trace (Neg-Trace) mg/dL Urine Glucose (UA) Negative (Negative) mg/dL Urine Ketones >=160 (Negative) mg/dL Urine Blood Negative (Negative) Urine Nitrite Negative (Negative) Ur Leukocyte Esterase Negative (Negative) Urine RBC 0-2 (0-2) /HPF Urine WBC 0-5 (0-5) /HPF Ur Squamous Epith Cells 3-5 (0-2) /HPF Urine Bacteria Trace (None Seen) Hyaline Casts 0-2 (0-2) /LPF COVID-19 (PAT) Negative (Negative) COVID-19 Clin Com See Note Influenza Type A (JUAN PABLO) Negative (Negative) Influenza Type B (JUAN PABLO) Negative (Negative) Influenza A & B Note See Note Discharge Plan Discharge Clinical Impression: Hyperemesis gravidarum Patient Disposition: Home, Self-Care Instructions: Hyperemesis Gravidarum (ED) Additional Instructions: Drink plenty of fluids Continue to take zofran for severe nausea and vomiting Follow up with your vehicle service attendant Prescriptions: New ondansetron 4 mg tablet,disintegrating 4 mg PO Q6-8H PRN (Reason: nausea and vomiting) Qty: 20 0RF No Action doxylamine-pyridoxine (vit B6) [Diclegis] 10-10 mg tablet,delayed release (DR/EC) 1 tab PO BID PRN (Reason: nausea and vomiting) Qty: 30 0RF nitrofurantoin monohyd/m-cryst [Macrobid] 100 mg capsule 100 mg PO Q12H 7 Days Qty: 14 0RF Rx Instructions: must administer with a meal/food ondansetron 4 mg tablet,disintegrating 4 mg PO Q6-8H PRN (Reason: nausea and vomiting) Qty: 20 0RF Interventions: ED Discharge Assessment Last Done: 04/30/24 04:09 Discharge Date/Time: 04/30/24 04:10 Print Language: Lithuanian
[2024-04-30] MEDS: 0.9 % Sodium Chloride 1,000 ML 999 ML IV (00:47)
[2024-04-30 00:49] VITALS: BP 106/56; PULSE 68; RESP 14; TEMP 36.6; O2SAT 100
[2024-04-30 01:45] LABS: Appearance Urine Clear; Color Urine Dark Yellow; Glucose Urine UA Negative (Negative); Leukocyte Esterase Urine Negative (Negative); Nitrite Urine Negative (Negative); PH 6.5 (5.0-9.0); Specific Gravity - Urine >= 1.030 (1.005-1.025); Urine Blood Negative (Negative); Urine Ketones >=160 mg/dL (Negative); Urine Protein Trace mg/dL (Neg-Trace)
[2024-04-30 02:21] LABS: Bacteria Urine Trace (None Seen); Hyaline Casts Urine 0-2 /LPF (0-2); RBC Urine 0-2 /HPF (0-2); WBC Urine 0-5 /HPF (0-5)
--- NOTE | 2024-04-30 03:24 | PC.NURSE ---
pt able to tolerate PO crackers and kamron dimitris w/out vomiting
[2024-04-30 04:09] VITALS: BP 97/52; PULSE 68; RESP 16; TEMP 36.4; O2SAT 99
== END 2024-04-30 04:10 | disposition home or self-care (01) ==
PROVIDERS: Emergency Provider Internal Medicine; PCP Nurse Practitioner Family
DX: O21.0 Mild hyperemesis gravidarum (principal); Z3A.15 15 weeks gestation of pregnancy; Z79.899 Other long term (current) drug therapy
CPT/HCPCS: 36415; 80053; 81001; 83690; 84702; 85025; 87502; 87635; 96360; 96361; 99284

== ENCOUNTER 2025-04-02 18:31 | Emergency (ER) | payer OTHER, SELFPAY ==
--- NOTE | ~2025-04-02 | XR_ITS ---
CLINICAL HISTORY: cough 2 view chest x-ray. Comparison: None Findings: No consolidation or effusion. Cardiac and mediastinal contours are unremarkable. Bones unremarkable. Impression: 1. No acute pulmonary disease. This document has been electronically signed by: Guillermo Osman MD on 04/02/2025 19:47:51
[2025-04-02 19:02] VITALS: BP 131/76; PULSE 81; RESP 16; TEMP 36.6; O2SAT 98; BMI 32.0
--- NOTE | 2025-04-02 19:04 | ED_ITS ---
HPI - General Adult General Chief complaint: Upper Respiratory Symptoms Stated complaint: cough Time Seen by Provider: 04/02/25 19:41 Source: patient Mode of arrival: ambulatory Limitations: no limitations History of Present Illness ED Provider: Lucinda Saleem PA-C HPI narrative: Patient is a 25 year old assigned female at with a history of approximately 5 months presenting to the emergency department today with a scratchy throat and a cough. Patient states that over the last 4 days she has felt generally unwell with a scratchy through and a cough. Patient states that she was seen at an urgent care today where they told her she did not have COVID-19 or Influenza. Patient denies any other complaints at this time. Related Data Previous Rx's ?Medication ?Instructions ?Recorded doxylamine 10 mg-pyridoxine (vit 1 tab PO BID PRN naus ea and 03/22/24 B6) 10 mg tablet,delayed release vomiting #30 tabs (Diclegis) nitrofurantoin 100 mg PO Q12H 7 days #14 ca ps 03/22/24 monohydrate/macrocrystals 100 mg capsule (Macrobid) ondansetron 4 mg disintegrating 4 mg PO Q6-8H PRN naus ea and 04/02/24 tablet vomiting #20 tabs ondansetron 4 mg disintegrating 4 mg PO Q6-8H PRN naus ea and 04/30/24 tablet vomiting #20 tabs doxycycline hyclate 100 mg tablet 100 mg PO BID 7 days #14 tabs 04/02/25 Allergies Allergy/AdvReac Type Severity Reaction Status Date / Time No Known Allergies (No Known Allergy Verified 04/02/25 19:07 Allergies*) Review of Systems Constitutional: Constitutional: Reports as per HPI Eyes: Eyes: Reports as per HPI ENT: Reports as per HPI Cardiovascular: Cardiovascular: Reports as per HPI Respiratory: Respiratory: Reports as per HPI Gastrointestinal: Gastrointestinal: Reports as per HPI Genitourinary: Genitourinary: Reports as per HPI Musculoskeletal: Musculoskeletal: Reports as per HPI Integumentary/Breasts: Skin/Breast: Reports as per HPI Neurologic: Reports as per HPI Psychiatric: Psychiatric: Reports as per HPI Endocrine: Endocrine: Reports as per HPI Hematologic/Lymphatic: Hematologic/Lymphatic: Reports as per HPI Allergic/Immunologic: Allergic/Immunologic: Reports as per HPI [facility] Past Medical History Attestation statement: The following information was validated with the patient. 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 Cognitive needs: No Hearing needs: Yes Vision needs: Yes (contacts) Physical Exam ED Vital Signs: Vital Signs - 24 hr 04/02/25 19:02 04/02/25 19:50 Temperature 97.9 F 97.9 F Pulse Rate 81 81 Respiratory Rate 16 16 Blood Pressure 131/76 131/76 Pulse Oximetry 98 98 Oxygen Delivery Method Room Air Room Air BMI result Body Mass Index 32.0 Const General: cooperative, no acute distress, alert and awake Nutritional Appearance: well nourished Orientation/consciousness: patient oriented x3 HENMT Head: Yes normal to inspection and Yes atraumatic Ears: hearing grossly normal bilaterally and external ears normal General nose exam: Normal external nose present, no nasal discharge noted and no epistaxis Face and sinus: Yes normal facial exam, No abrasion and No laceration Mouth: Normal oral and palatal mucosa present, no drooling and no muffled voice Eyes General: appearance normal, both eyes and all related structures Periorbital: periorbital findings normal Eyelids: Yes eyelids normal Conjunctivae: conjunctivae normal Pupils: Equal, round and reactive pupils present EOM: EOMs intact bilaterally Neck Neck: Yes normal visual inspection and Yes full ROM Resp Effort & Inspection: normal respiratory effort and able to speak in complete sentences Neuro General: patient oriented x3, moves all extremities and CN's II-XI intact bilaterally Cranial nerves: Yes Equal, round and reactive pupils present Cognition (Neuro): normal cognition Extrem General: Yes normal to inspection, Yes full ROM and Yes capillary refill normal Psych Appearance: grossly normal Mental Status: mental status grossly normal Affect: normal affect Attitude: cooperative Thought process: Normal thought process present Thought content: Normal thought content present Insight: Good insight present (Psych) Course Course Course Narrative: Rapid medical examination performed in triage by Lucinda Saleem PA-C: Patient is a 25 year old assigned female at presenting to the emergency department with a sore throat and a cough. Patient states she was tested for COVID-19 + influenza at the urgent care tonight and it was negative. Detailed physical exam and review of systems are deferred to the body liner. Swabs + CXR ordered. Patient placed back in the waiting room pending room availability and results. Medical Decision Making Medical Decision Making [facility] Narrative: Patient is a 25 year old assigned female at with a history of approximately 5 months presenting to the emergency department today with a scratchy throat and a cough. Patient's physical exam was as noted in the physical exam portion of this note. Patient's strep test was negative. Patient's chest x-ray showed no acute process. Given patient's duration of symptoms - will treat for atypical bacterial URI with ABX. I explained my physical exam findings as well as all test results to the patient. I answered all questions asked by the patient. I stressed the importance of the patient taking her medication as directed (either prescribed or as the over the counter packaging recommends). I stressed the importance of the patient following up with her primary care provider. I stressed the importance of the patient returning to the emergency department immediately if her symptoms were to worsen or if she were to develop any dizziness, shortness of breath, difficulty breathing, chest pain, blurry vision, loss of vision, nausea, vomiting, abdominal pain, fever, chills, back pain, or any other complaints. Patient verbalized agreement and understanding with this treatment plan and discharge. Differential Diagnosis Differential Diagnoses: The differential diagnosis associated with the presentation includes Strep pharyngitis URI Atypical bacterial URI PNA Admission/Observation Consideration of admission/observation: Escalation of care including admission/observation considered Patient would have been admitted to the hospital had her work up had any findings where hospital admission was appropriate and her clinical presentation warranted hospital admission. Lab Data [facility] Lab Attestation statement: I reviewed the patient's lab results. My interpretation of these results are in the MDM Rationale portion of this note. Labs: Lab Results 04/02/25 Range/Units 19:22 S. pyogenes GrpA JUAN PABLO Negative (Negative) Independent Interpretation I performed an independent interpretation of an: Plain X-Ray Interpretation: My interpretation is in agreement with the radiologist's impression of this imaging study. Reason for Exam: cough CLINICAL HISTORY: cough 2 view chest x-ray. Comparison: None Findings: No consolidation or effusion. Cardiac and mediastinal contours are unremarkable. Bones unremarkable. Impression: 1. No acute pulmonary disease. This document has been electronically signed by: Guillermo Osman MD on 04/02/2025 19:47:51 Dictated By: Guillermo Osman MD Signed By: Electronically signed by Guillermo Osman MD 04/02/251948 Prescription Management I considered prescription management with: Antibiotic (patient prescribed an antibiotic for possible atypical URI) Discharge Plan Discharge Clinical Impression: Upper respiratory infection Qualifiers: URI type: unspecified URI Qualified Code(s): J06.9 - Acute upper respiratory infection, unspecified Patient Disposition: Home, Self-Care Instructions: Upper Respiratory Infection (DC) Additional Instructions: Your chest x-ray and strep swabs were negative. I am suspicious you have an atypical URI for which you have been given an antibiotic. Please take it as prescribed and avoid direct sunlight while you are on it. IF you are prescribed home medications and/or you are taking over the counter medications at home - it is very important you continue to do so as prescribed / directed unless told otherwise. Follow up with a primary care provider. Return to the emergency department immediately if your symptoms worsen or if you develop any numbness, tingling, dizziness, shortness of breath, difficulty breathing, chest pain, blurry vision, loss of vision, nausea, vomiting, abdominal pain, fever, chills, back pain, or any other complaints. If you do not have a primary care provider - call any of the below numbers to establish and follow up with a primary care provider. [facility] [place] [phone] [place] [address] [place], [address] [facility] [place] ([address] [place] [phone] [address] [facility], [address] [place], [address] [facility] [place] ([address] [place]) [phone] [place] [address], [address] [facility], [address] [facility] [place] ([place]) [phone] [place] [address], [address] [facility] [place], [address] [facility] [place] [phone] [address] [facility], [address] Please see the information below about our Patient Portal. If you are not yet enrolled in the [facility] Patient Portal, you will receive an enrollment email invitation following your visit to any [facility], located within [facility] setting. You may also self-enroll in the Patient Portal by visiting our website: [email or web address] The following information is required to access the Patient Portal: - Your [facility] [place] Number - Your personal home email address (must match what is in your electronic medical record, Registration staff can assist with this) - Name - Date of Capabilities of the Patient Portal: - Message some providers - View upcoming appointments - Access your health summary, medical history, and visit history - View current conditions and allergies - View procedure and lab results - View your medications, including guidelines, side effects, and precautions - Complete pre-appointment questionnaires requested by your provider - Ready summary reports of your office visits and procedures To access the Patient Portal Mobile [employer], follow these directions: - Search [facility] in the [employer] Store or Planspot Store - Download the [place]on - Search for [facility] - Enter your login/password Prescriptions: New doxycycline hyclate 100 mg tablet 100 mg PO BID 7 Days Qty: 14 0RF No Action doxylamine-pyridoxine (vit B6) [Diclegis] 10-10 mg tablet,delayed release (DR/EC) 1 tab PO BID PRN (Reason: nausea and vomiting) Qty: 30 0RF nitrofurantoin monohyd/m-cryst [Macrobid] 100 mg capsule 100 mg PO Q12H 7 Days Qty: 14 0RF Rx Instructions: must administer with a meal/food ondansetron 4 mg tablet,disintegrating 4 mg PO Q6-8H PRN (Reason: nausea and vomiting) Qty: 20 0RF ondansetron 4 mg tablet,disintegrating 4 mg PO Q6-8H PRN (Reason: nausea and vomiting) Qty: 20 0RF Interventions: ED Discharge Assessment Last Done: 04/02/25 19:50 Print Language: Greek
[2025-04-02 19:33] LABS: IDNOW Serial# 55D5AD1C; Strep A Nucleic Acid Negative (Negative)
[2025-04-02 19:50] VITALS: BP 131/76; PULSE 81; RESP 16; TEMP 36.6; O2SAT 98
--- OUTSIDE RECORDS SUMMARY | 2025-04-02 20:19 | XMS_ITS | Clinical Summary ---
Author Organization [employer] Address [address] [facility] [address] [place] [address] Care Team Providers Care Infectious Diseases Physician Name Role Phone Unavailable Primary Care Provider Unavailabl e Social History Tobacco Use Types Packs/Day Years Used Date Smoking Tobacco: Never Assessed Comments Unknown Sex and Gender Information Value Date Recorded Sex Assigned at Female 03/23/2022 10:36 AM EDT Legal Sex Female 10:36 AM EDT Gender Identity Not on file Sexual Orientation Not on file Plan of Treatment Health Maintenance Due Date Last Done Comments Depression Screening 1998 Disability Screening 1998 Alcohol/Substance Use Screening 2010 Tobacco Screening 2010 Family Planning (PISQ) 2013 HPV Vaccines (1 - 3-dose series) 2013 Hepatitis B Vaccines (1 of 3 - 19+ 3-dose series) 2017 Pap Smear 2019 COVID-19 Vaccine ( - 2023-2 5 season) 2025 Influenza Vaccine (#1) 2025 05/10/2024 DTaP/Tdap/Td Vaccines (2 - T d or Tdap) 07/27/2034 07/27/2024 Zoster Vaccines (1 of 2) 2048 RSV Patients and Pa tients Aged 60 years or older (1 - 1-dose 75+ series) 2073 HIB Vaccines Aged Out No longer eligi ble based on patient's age to complete this topic Hepatitis A Vaccines Aged Out No long er eligible based on patient's age to complete this topic IPV Vaccines Aged Out No longer eligi ble based on patient's age to complete this topic Meningococcal B Vaccine Aged Out No l onger eligible based on patient's age to complete this topic Meningococcal Vaccine Aged Out No magui joseph eligible based on patient's age to complete this topic Pneumococcal Vaccine: Pediat rics (0 to 5 Years) and At-Risk Patients (6 to 49) Years Aged Out No longer eligi ble based on patient's age to complete this topic RSV under 20 months Aged Out No longe r eligible based on patient's age to complete this topic Rotavirus Vaccines Aged Out No longer eligible based on patient's age to complete this topic
--- OUTSIDE RECORDS SUMMARY | 2025-04-02 20:19 | XMS_ITS | Encounter Summary ---
Author Organization [employer] Address [address] [facility] [address] [place] [address] Care Team Providers Care Cloud Solutions Architect Name Role Phone Unavailable Primary Care Provider Unavailabl e Encounter Details Date Type Department Care Team (Latest Contact Info) Description 02/15/2019 Abstract [facility] CONVERSIONS Dental, Provider, DDS Social History Tobacco Use Types Packs/Day Years Used Date Smoking Tobacco: Never Assessed Comments Unknown Sex and Gender Information Value Date Recorded Sex Assigned at Female 03/23/2022 10:36 AM EDT Legal Sex Female 10:36 AM EDT Gender Identity Not on file Sexual Orientation Not on file documented as of this encounter Plan of Treatment Not on file documented as of this encounter Visit Diagnoses Not on filedocumented in this encounter
== END 2025-04-02 20:23 | disposition home or self-care (01) ==
LOC: HO.ED 20:16
PROVIDERS: Physician Assistant Medical; Emergency Provider Emergency Medicine
DX: J06.9 Acute upper respiratory infection, unspecified (principal); R05.9 Cough, unspecified
CPT/HCPCS: 71046; 87651; 99282; 99283

== ENCOUNTER → 2025-04-02 19:05 | Outpatient (BNV) | payer OTHER, SELFPAY | PROVIDERS: Emergency Provider Emergency Medicine; Visit Provider Radiology Diagnostic Radiology | DX: R05.9 Cough, unspecified (principal) | CPT/HCPCS: 71046 ==

== ENCOUNTER 2025-04-26 09:50 | Emergency (ER) | payer OTHER, SELFPAY ==
--- NOTE | ~2025-04-26 | XR_ITS ---
EXAMINATION: X-ray left hand X-ray left wrist CLINICAL INFORMATION: Pain COMPARISON: None TECHNIQUE: Wrist 4 views. Hand 3 views. FINDINGS: No acute fracture, dislocation or suspicious bony lesion is identified No significant arthritic change or erosions. No significant soft tissue swelling. No radiopaque foreign body. XR/XR hand LT min 3V IMPRESSION: No radiographic evidence of acute osseous findings. Electronically signed by: Phillip Jarquin MD 04/26/2025 12:23 PM BERT
--- NOTE | ~2025-04-26 | XR_ITS ---
EXAMINATION: X-ray left hand X-ray left wrist CLINICAL INFORMATION: Pain COMPARISON: None TECHNIQUE: Wrist 4 views. Hand 3 views. FINDINGS: No acute fracture, dislocation or suspicious bony lesion is identified No significant arthritic change or erosions. No significant soft tissue swelling. No radiopaque foreign body. XR/XR wrist LT min 3V IMPRESSION: No radiographic evidence of acute osseous findings. Electronically signed by: Phillip Jarquin MD 04/26/2025 12:23 PM BERT
[2025-04-26 10:02] VITALS: BP 134/89; PULSE 82; RESP 16; TEMP 36.1; O2SAT 96; BMI 30.8
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
[2025-04-26 12:21] VITALS: BP 116/70; PULSE 87; RESP 18; TEMP 36.2; O2SAT 98
--- NOTE | 2025-04-26 13:12 | PC.NURSE ---
patient a&ox3, vss, pt had xr performed/resulted, was medicated for pain, splint to be applied by tech, pt to discharge home per order.
[2025-04-26 13:23] VITALS: BP 118/80; PULSE 88; RESP 16; TEMP 36.2; O2SAT 98
== END 2025-04-26 13:24 | disposition home or self-care (01) ==
PROVIDERS: Emergency Provider Emergency Medicine
DX: S13.4XXA Sprain of ligaments of cervical spine, initial encounter (principal); S63.502A Unspecified sprain of left wrist, initial encounter; V44.5XXA Car driver injured in collision with heavy transport vehicle or bus in traffic accident, initial encounter; Y93.89 Activity, other specified; Y92.410 Unspecified street and highway as the place of occurrence of the external cause; Y99.8 Other external cause status
CPT/HCPCS: 73110; 73130; 99283; 99285

== ENCOUNTER → 2025-04-26 12:08 | Outpatient (BNV) | payer OTHER, SELFPAY | PROVIDERS: Emergency Provider Emergency Medicine; Visit Provider Radiology Diagnostic Ultrasound | DX: M79.642 Pain in left hand (principal); M25.532 Pain in left wrist | CPT/HCPCS: 73110; 73130 ==